=== PATIENT | male | born 1970 | race Caucasian/White ===

== ENCOUNTER 2018-03-18 07:42 | Day surgery (SDC) | payer SELFPAY ==
[~2018-03-18] VITALS: Ht 177.8 cm; Wt 83.9 kg
[~2018-03-18 07:42] MED LIST: DIPH25TA82 PO; IBP200T PO; LOSA100T28 PO
[2018-03-18] MEDS ORDERED: CLINDAMYCIN 600 MG/50 ML IVPB 50 ML IV ONE (08:00)
[2018-03-18 08:04] VITALS: BP 138/106
[2018-03-18] MEDS ORDERED: DEXAMETHASONE 10 MG/ML (DECADRON) 1 ML VIAL ONE (08:16)
[2018-03-18] MEDS ORDERED: proPOfol 200 MG/20 ML (DIPRIVAN) VIAL IV ONE (08:16)
[2018-03-18] MEDS ORDERED: LIDOCAINE PF 2% 5 ML (XYLOCAINE) VIAL ONE (08:16)
[2018-03-18] MEDS ORDERED: fentaNYL INJECTION 100 MCG/2 ML AMP ONE (08:16)
[2018-03-18] MEDS ORDERED: ONDANSETRON 4 MG/2 ML (SDV) Z0FRAN ONE (08:16)
[2018-03-18] MEDS ORDERED: SEVOFLURANE (ULTANE) 15 ML INHAL SOLN ONE ×3 (08:16→08:22)
[2018-03-18] MEDS ORDERED: MIDAZOLAM 2 MG/2 ML (VERSED) VIAL ONE (08:17)
[2018-03-18] MEDS: LACTATED RINGERS 1,000 ML IV PRN ×2 (08:18→09:34)
[2018-03-18] MEDS ORDERED: LIDOCAINE 1% INJ 20 ML 20 ML VIAL ONE (08:45)
[2018-03-18] MEDS ORDERED: BUPIVACAINE 0.5% 30 ML (SENSORCAINE) VIAL ONE (08:45)
--- NOTE | 2018-03-18 08:50 | Progress Note-Pre Operative ---
Pre-Operative Progress Note H&P Reviewed The H&P was reviewed, patient examined and no changes noted. Date Seen by Provider: Mar 18, 2018 Time Seen by Provider: 08: Date H&P Reviewed: Mar 18, 2018 Time H&P Reviewed: :30 Pre-Operative Diagnosis: left inguinal hernia MARSHAL ROLON DO Mar 18, 2018 08:50
[2018-03-18] MEDS ORDERED: ACHD5005 PO (09:39)
[2018-03-18] MEDS ORDERED: DOCU-143 PO (09:39)
--- NOTE | 2018-03-18 09:41 | Discharge Inst-Simple/Standard ---
Discharge Inst-Standard Discharge Medications New, Converted or Re-Newed RX: RX on Chart Patient Instructions/Follow Up Plan of Care/Instructions/FU: 2-3 weeks Lulu Activity as Tolerated: No Discharge Diet: Regular Diet Other Inst to Patient Follow up Appt: Make appointment for 2-3 week. Instructions: No lifting greater than 10 pounds. No strenuous activity. May shower in 24 hours, no tub bath or soaking. Use incentive spirometer at home as directed. No Smoking Skin/Wound Care: You have special glue over incision it will fall off on its own. Symptoms to Report: Appetite Changes, Extremity Discoloration, Numbness/Tingling, Swelling Increased , Bleeding Excessive, Eyesight Changes, Pain Increased, Urine Color Change, Constipation(Persistent), Fever over 101 degree F, Pain/Pressure in chest, Urinating Difficulty, Cough Up/Vomit Blood, Heart Beat Irreg/Pounding, Pain/ Pressure in jaw, Vaginal Bleeding Increase, Cramps in feet or legs, Lightheadedness, Pain/Pressure in shoulder, Diarrhea(Persistent), Memory Changes Suddenly, Questions/Concerns, Weight gain consecutive days, Dizziness/ Fainting, Nausea/Vomiting, Shortness of Breath, Weight gain over 2 pounds If questions or concerns contact your physician Or seek help at emergency department. MARSHAL ROLON DO Mar 18, 2018 09:41
--- NOTE | 2018-03-18 09:43 | Progress Note-Post Operative ---
Post-Operative Progess Note Surgeon (s)/Garbage Collector (s) Surgeon MARSHAL ROLON DO Garbage Collector: Dr. Cotton Pre-Operative Diagnosis left inguinal hernia Post-Operative Diagnosis direct left inguinal hernia Procedure & Operative Findings Date of Procedure 03/18/18 Procedure Performed/Findings open left inguinal hernia repair. Anesthesia Type general Estimated Blood Loss Estimated blood loss (mL): minimal Specimens/Packing Specimens Removed na MARSHAL ROLON DO Mar 18, 2018 09:43
[2018-03-18] MEDS ORDERED: morphine INJ 10 MG/ML 1ML (SYR OR VIAL) ONE (10:13)
[2018-03-18] MEDS ORDERED: ONDANSETRON 4 MG/2 ML (SDV) Z0FRAN IVP PRN (10:15)
[2018-03-18] MEDS ORDERED: HYDROmorphone 2 MG/ML VIAL (DILAUDID) IVP PRN (10:15)
[2018-03-18] MEDS: morphine INJ 10 MG/ML 1ML (SYR OR VIAL) IVP PRN ×2 (10:17→10:25)
--- NOTE | 2018-03-18 10:36 | Anesthesia-General Post-Op ---
General Patient Condition Mental Status/LOC: Same as Preop Cardiovascular: Satisfactory Nausea/Vomiting: Absent Respiratory: Satisfactory Pain: Controlled Complications: Absent Post Op Complications Complications None Follow Up Care/Instructions Patient Instructions None needed. Anesthesia/Patient Condition Patient Condition Patient is doing well, no complaints, stable vital signs, no apparent adverse anesthesia problems. LIOR ALMANZA DO Mar 18, 2018 10:36
[2018-03-18 10:55] VITALS: BP 139/101
[2018-03-18 11:25] VITALS: BP 130/101
[2018-03-18 11:55] VITALS: BP 144/103
[2018-03-18 12:00] VITALS: BP 144/103
--- NOTE | 2018-03-19 01:08 | OPERATIVE REPORT ---
DATE OF SERVICE: 03/18/2018 PREOPERATIVE DIAGNOSIS: Left inguinal hernia. POSTOPERATIVE DIAGNOSIS: Direct left inguinal hernia repair. PROCEDURE: Open left inguinal hernia repair. SURGEON: Marshal Lawson DO. CUSTOMER CONTACT SALES ASSOCIATE: Dr. Cotton, assisted in retraction, dissection and closure. ANESTHESIA: General. ESTIMATED BLOOD LOSS: Minimal. COMPLICATIONS: None. INDICATIONS: The patient is a 47-year-old male with left inguinal hernia with increase in size. He wishes to have it repaired. He understands risks and benefits and wishes to proceed. Consent was signed on chart. DESCRIPTION OF PROCEDURE: The patient was taken to the operating suite, was prepped and draped in sterile fashion. Surgical pause was performed. Local anesthetic was infiltrated in the area. An incision was made in the left lower quadrant and cautery was used to dissect down to the external oblique which was then opened down through the external ring. The spermatic cord was then dissected around. No indirect hernia noted. A large direct defect present. Transversalis fascia was then used to close the defect to the shelving edge of the external oblique after the hernia contents were reduced. A left Parietex ProGrip mesh was then secured to Anibal's ligament and then incorporated around the spermatic cord and placed on the external oblique. The wound was then irrigated with copious amounts of irrigation and suction. The external oblique was then closed using 3-0 Vicryl in a running fashion, recreating the external ring. The subcutaneous tissues were then reapproximated using 3-0 Vicryl. Skin was then closed using 4-0 Vicryl in a running subcuticular fashion. The area was then washed and dried and Skin Affix was placed over the incision. The patient tolerated the procedure well without any complications and taken to recovery room in stable condition. Job ID: [id number] DocumentID: [id number] Dictated Date: 03/18/2018 12:29:10 Bushing And Broach Operator Date: 03/18/2018 23:01:29 Dictated By: MARSHAL LAWSON DO
== END 2018-03-18 12:00 | disposition home or self-care (01) ==
LOC: SDC 07:42
PROVIDERS: ATTEND Surgery
DX: K40.90 Unilateral inguinal hernia, without obstruction or gangrene, not specified as recurrent (principal); I10 Essential (primary) hypertension; Z79.899 Other long term (current) drug therapy; Z87.891 Personal history of nicotine dependence
CPT/HCPCS: 87081; 94664

== ENCOUNTER 2019-04-05 12:36 | Emergency (ER) | payer SELFPAY ==
[~2019-04-05] VITALS: Ht 175.3 cm; Wt 75.3 kg
[~2019-04-05 12:36] MED LIST changes: +ACHD5005 PO; +DOCU-143 PO; -LOSA100T28 PO; +LOSA100T57 PO
[2019-04-05] MEDS ORDERED: LORazepam INJ 2 MG/ML (ATIVAN) VIAL ONE (12:40)
--- OUTSIDE RECORDS SUMMARY | 2019-04-05 12:41 | XMS REPORT | Continuity of Care Document ---
Author Organization Unknown Address Unknown Allergies Active Description Code Type Severity Reaction Onset Reported/Identified Relationship to Patient Clinical Status Yes Penicillins [id number] Drug Allergy Moderate N/A 03/12/2018 Medications There is no data. Problems Date Dx Coded Attending Type Code Diagnosis Diagnosed By 08/17/2013 PA COREA APRN Ot 300.00 08/17/2013 PA COREA APRN Ot 782.0 11/13/2015 SANTO HAIRSTON, ELIOT Beal Ot F45.8 11/13/2015 SANTO HAIRSTON, ELIOT Beal Ot Z72.0 03/16/2018 MARSHAL ROLON DO Ot K40.90 UNIL INGUINAL HERNIA, W/O OBST OR GANGR, 03/16/2018 MARSHAL ROLON DO Ot Z01.818 ENCOUNTER FOR OTHER PREPROCEDURAL EXAMIN 03/18/2018 MARSHAL ROLON DO Ot K40.90 UNIL INGUINAL HERNIA, W/O OBST OR GANGR, 03/18/2018 MARSHAL ROLON DO Ot Z01.818 ENCOUNTER FOR OTHER PREPROCEDURAL EXAMIN 03/19/2018 MARSHAL ROLON DO Ot I10 ESSENTIAL (PRIMARY) HYPERTENSION 03/19/2018 MARSHAL ROLON DO Ot K40.90 UNIL INGUINAL HERNIA, W/O OBST OR GANGR, 03/19/2018 MARSHAL ROLON DO Ot Z79.899 OTHER PETROLEUM SAMPLER (CURRENT) DRUG THERAPY 03/19/2018 MARSHAL ROLON DO Ot Z87.891 PERSONAL HISTORY OF NICOTINE DEPENDENCE Procedures There is no data. Results Test Result Range Methicillin resistant Staphylococcus aureus (MRSA) screening culture - 08:20 Methicillin resistant Staphylococcus aureus (MRSA) screening culture NEG NRG Encounters ACCT No. Visit Date/Time Discharge Status Pt. Type Provider Facility Loc./Unit Complaint [id number] 03/18/2018 07:42:00 03/18/2018 12:00:00 DIS Outpatient MARSHAL ROLON DO [facility] SDC LEFT INGUINAL HERNIA [id number] 03/12/2018 05:31:00 03/12/2018 10:40:00 DIS Outpatient MARSHAL ROLON DO [facility] PREOP LEFT INGUINAL HERNIA [id number] 11/13/2015 18:46:00 11/13/2015 19:35:00 DIS Emergency ELIOT BLANCHARD MD [facility] ER [id number] 08/17/2013 17:43:00 08/17/2013 19:22:00 DIS Emergency PA COREA APRN [facility] ER
[2019-04-05] MEDS ORDERED: LORazepam INJ 2 MG/ML (ATIVAN) VIAL IVP PRN ×2 (12:45→13:00)
--- NOTE | 2019-04-05 12:45 | ED General ---
General Stated Complaint: SOA;MUSCLES TENSE;CP Source of Information: Patient Exam Limitations: No Limitations History of Present Illness Date Seen by Provider: April 05, 2019 Time Seen by Provider: 12:43 Initial Comments To ER by and mother with reports of shortness of breath, tense muscles, chest pain for about 2 weeks worse today. He does feel very anxious. He's had this happen once before was told it was anxiety. He's had a workup for this over the past few weeks with Dr. Soriano with normal labs and x-rays. Timing/Duration: Getting Worse, Intermittent Severity: Moderate Allergies and Home Medications Allergies Coded Allergies: Penicillins (Unverified Adverse Reaction, Intermediate, 03/12/18) Home Medications Losartan Potassium 100 Mg Tablet, 100 MG PO DAILY, (Reported) Patient Home Medication List Home Medication List Reviewed: Yes Review of Systems Review of Systems Constitutional: see HPI EENTM: see HPI Respiratory: see HPI, dyspnea on exertion Cardiovascular: no symptoms reported Genitourinary: no symptoms reported Musculoskeletal: no symptoms reported Skin: no symptoms reported Psychiatric/Neurological: No Symptoms Reported Hematologic/Lymphatic: No Symptoms Reported Immunological/Allergic: no symptoms reported Past Enxtluf-Gmvdoo-Fkxouv Hx Patient Social History Recent Foreign Travel: No Contact w/Someone Who Travel: No Recent Hopitalizations: No Seasonal Allergies Seasonal Allergies: Yes (MILD) Past Medical History Adenoidectomy, Tonsillectomy Hypertension Reproductive Disorders: No Sexually Transmitted Disease: No HIV/AIDS: No Loss of Vision: Bilateral Hearing Impairment: Denies Adverse Reaction/Blood Tranf: No (N/A) Family Medical History No Pertinent Family Hx Physical Exam Vital Signs Vital Signs - First Documented 04/05/19 12:36 Temp 98.1 Pulse 82 Resp 18 B/P (MAP) 125/111 (116) Pulse Ox 99 Capillary Refill : Height, Weight, BMI Height: 5'10.00" Weight: 185lbs. 0.0oz. 83.926844vf; 26.5 BMI Method:Stated General Appearance: No Apparent Distress, WD/WN Eyes: Bilateral Eye Normal Inspection, Bilateral Eye PERRL, Bilateral Eye EOMI HEENT: PERRL/EOMI, TMs Normal Neck: Full Range of Motion, Normal Inspection Respiratory: Normal Breath Sounds, No Accessory Muscle Use, No Respiratory Distress Cardiovascular: Regular Rate, Rhythm, Normal Peripheral Pulses Gastrointestinal: Normal Bowel Sounds, Non Tender, Soft Neurologic/Psychiatric: Alert, Oriented x3, Other (very anxious appearing, hyperventilating, carpal spasms noted) Skin: Normal Color, Warm/Dry Progress/Results/Core Measures Suspected Sepsis SIRS Temperature: Pulse: Respiratory Rate: Laboratory Tests 04/05/19 12:42: White Blood Count 9.4 Blood Pressure / Mean: Laboratory Tests 04/05/19 12:42: Creatinine 0.95, INR Comment 0.9, Platelet Count 300, Total Bilirubin 0.4 Results/Orders Lab Results Laboratory Tests Test 04/05/19 12:42 Range/Units White Blood Count 9.4 4.3-11.0 10^3/uL Red Blood Count 4.91 4.35-5.85 10^6/uL Hemoglobin 15.3 13.3-17.7 G/DL Hematocrit 42 40-54 % Mean Corpuscular Volume 86 80-99 FL Mean Corpuscular Hemoglobin 31 25-34 PG Mean Corpuscular Hemoglobin Concent 36 32-36 G/DL Red Cell Distribution Width 11.9 10.0-14.5 % Platelet Count 300 130-400 10^3/uL Mean Platelet Volume 9.4 7.4-10.4 FL Neutrophils (%) (Auto) 57 42-75 % Lymphocytes (%) (Auto) 35 12-44 % Monocytes (%) (Auto) 7 0-12 % Eosinophils (%) (Auto) 1 0-10 % Basophils (%) (Auto) 0 0-10 % Neutrophils # (Auto) 5.3 1.8-7.8 X 10^3 Lymphocytes # (Auto) 3.3 1.0-4.0 X 10^3 Monocytes # (Auto) 0.7 0.0-1.0 X 10^3 Eosinophils # (Auto) 0.1 0.0-0.3 10^3/uL Basophils # (Auto) 0.0 0.0-0.1 10^3/uL Prothrombin Time 12.5 12.2-14.7 SEC INR Comment 0.9 0.8-1.4 Activated Partial Thromboplast Time 29 24-35 SEC D-Dimer <= 0.27 0.00-0.49 UG/ML Sodium Level 135 135-145 MMOL/L Potassium Level 3.6 3.6-5.0 MMOL/L Chloride Level 105 98-107 MMOL/L Carbon Dioxide Level 19 L 21-32 MMOL/L Anion Gap 11 5-14 MMOL/L Blood Urea Nitrogen 12 7-18 MG/DL Creatinine 0.95 0.60-1.30 MG/DL Estimat Glomerular Filtration Rate > 60 BUN/Creatinine Ratio 13 Glucose Level 105 70-105 MG/DL Calcium Level 10.1 8.5-10.1 MG/DL Corrected Calcium 8.5-10.1 MG/DL Magnesium Level 1.9 1.8-2.4 MG/DL Total Bilirubin 0.4 0.1-1.0 MG/DL Aspartate Amino Transf (AST/SGOT) 14 5-34 U/L Alanine Aminotransferase (ALT/SGPT) 13 0-55 U/L Alkaline Phosphatase 54 40-136 U/L Myoglobin 30.6 10.0-92.0 NG/ML Troponin I < 0.028 <0.028 NG/ML B-Type Natriuretic Peptide 18.2 <100.0 PG/ML Total Protein 7.4 6.4-8.2 GM/DL Albumin 4.8 H 3.2-4.5 GM/DL Lipase 53 8-78 U/L My Orders Orders - PA COREA ASE MASTER MECHANIC Cbc With Automated Diff (04/05/19 12:42) Magnesium (04/05/19 12:42) Chest 1 View, Ap/Pa Only (04/05/19 12:42) Ekg Tracing (04/05/19 12:42) Cardiac Profile 1 (04/05/19 12:42) Comprehensive Metabolic Panel (04/05/19 12:42) Myoglobin Serum (04/05/19 12:42) Protime With Inr (04/05/19 12:42) Partial Thromboplastin Time (04/05/19 12:42) O2 (04/05/19 12:42) Monitor-Rhythm Ecg Trace Only (04/05/19 12:42) Lipid Panel (04/06/19 06:00) Ed Iv/Invasive Line Start (04/05/19 12:42) Lipase (04/05/19 12:42) BNP (04/05/19 12:42) Fibrin Degradation Products (04/05/19 12:42) Lorazepam Injection (Ativan Injection) (04/05/19 12:45) Ua Culture If Indicated (04/05/19 12:45) Drug Screen Stat (Urine) (04/05/19 12:45) Lorazepam Injection (Ativan Injection) (04/05/19 13:00) Medications Given in ED Current Medications Medications Dose Ordered Sig/Wilberto Route Start Time Stop Time Status Last Admin Dose Admin Lorazepam 1 mg ONCE PRN IVP 04/05/19 12:45 04/05/19 12:45 1 MG Vital Signs/I&O 04/05/19 12:36 Temp 98.1 Pulse 82 Resp 18 B/P (MAP) 125/111 (116) Pulse Ox 99 Capillary Refill : Departure Communication (Admissions) 1351-after 2 mg of lorazepam states that "I feel better than I have all day". He is already on Lexapro 10 mg daily. I'll increase this to 20 mg daily and when necessary prescription of lorazepam. I did discuss with him the addictive potential of that and the need to avoid it as much as possible. He'll follow-up with primary care. Impression Primary Impression: Anxiety Additional Impression: Hyperventilation syndrome Disposition: 01 HOME, SELF-CARE Condition: Improved Departure-Patient Inst. Decision time for Depature: 13:52 Referrals: KIKI SORIANO MD (PCP/Family) Primary Care Physician Patient Instructions: Panic Disorder (DC) Add. Discharge Instructions: 1. Return to ER for any concerns 2. Follow-up with your doctor next week Scripts Escitalopram Oxalate (Lexapro) 20 Mg Tablet 20 MG PO DAILY, #30 TAB 2 Refills Prov: PA COREA APRN 04/05/19 Lorazepam (Lorazepam) 1 Mg Tablet 1 MG PO BID PRN for ANXIETY, #14 TAB Prov: PA COREA APRN 04/05/19 Work/School Note: Work Release Form Date Seen in the Emergency Department: April 06, 2019 Return to Work: April 05, 2019 PA COREA APRN April 05, 2019 12:45
[2019-04-05 13:06] LABS: BASOPHILS % (AUTO) 0 % (0-10); EOSINOPHILS # (AUTO) 0.1 10^3/uL (0.0-0.3); EOSINOPHILS % (AUTO) 1 % (0-10); HEMATOCRIT 42 % (40-54); HEMOGLOBIN 15.3 G/DL (13.3-17.7); LYMPHOCYTES # (AUTO) 3.3 X 10^3 (1.0-4.0); LYMPHOCYTES % (AUTO) 35 % (12-44); MEAN CORPUSCULAR HEMOGLOBIN 31 PG (25-34); MEAN CORPUSCULAR HGB CONC 36 G/DL (32-36); MEAN CORPUSCULAR VOLUME 86 FL (80-99); MEAN PLATELET VOLUME 9.4 FL (7.4-10.4); MONOCYTES # (AUTO) 0.7 X 10^3 (0.0-1.0); MONOCYTES % (AUTO) 7 % (0-12); NEUTROPHILS # (AUTO) 5.3 X 10^3 (1.8-7.8); NEUTROPHILS % (AUTO) 57 % (42-75); PLATELET COUNT 300 10^3/uL (130-400); RED CELL DISTRIBUTION WIDTH 11.9 % (10.0-14.5); WHITE BLOOD COUNT 9.4 10^3/uL (4.3-11.0)
[2019-04-05] MEDS ORDERED: OMEP20CA12 (13:10)
[2019-04-05] MEDS ORDERED: DOXY100C2 (13:10)
[2019-04-05 13:14] LABS: INR 0.9 (0.8-1.4); PROTHROMBIN TIME PATIENT 12.5 SEC (12.2-14.7)
[2019-04-05 13:23] LABS: ALANINE AMINOTRANSFERASE 13 U/L (0-55); ALBUMIN 4.8 GM/DL (3.2-4.5); ALKALINE PHOSPHATASE 54 U/L (40-136); BILIRUBIN,TOTAL 0.4 MG/DL (0.1-1.0); BUN/CREATININE RATIO 13; CALCIUM 10.1 MG/DL (8.5-10.1); CARBON DIOXIDE 19 MMOL/L (21-32); CHLORIDE 105 MMOL/L (98-107); CREATININE SERUM 0.95 MG/DL (0.60-1.30); GFR ESTIMATED > 60; GLUCOSE 105 MG/DL (70-105); LIPASE 53 U/L (8-78); MAGNESIUM 1.9 MG/DL (1.8-2.4); POTASSIUM 3.6 MMOL/L (3.6-5.0); SODIUM 135 MMOL/L (135-145); TOTAL PROTEIN 7.4 GM/DL (6.4-8.2)
--- NOTE | 2019-04-05 13:32 | Diagnostic Imaging Report ---
INDICATION: Shortness of breath, muscle dense.. TECHNIQUE: Single view chest 1:20 PM. CORRELATION STUDY: None FINDINGS: The heart size, mediastinal configuration and pulmonary vascularity are within normal limits. Calcified right perihilar granulomas. The lungs are clear with no consolidating infiltrate. There is no significant effusion or pneumothorax. IMPRESSION: 1. No radiographic findings to suggest acute abnormality of the chest. Dictated by: Dictated on workstation # [id number]
[2019-04-05] MEDS ORDERED: LORA1TAB PO (13:53)
[2019-04-05] MEDS ORDERED: ESCI20TA PO (13:53)
[2019-04-05 14:03] VITALS: BP 107/72
== END 2019-04-05 14:03 | disposition home or self-care (01) ==
LOC: EDUNIT# 12:36 → ER 12:37
DX: F41.9 Anxiety disorder, unspecified (principal); R06.4 Hyperventilation; I10 Essential (primary) hypertension; Z88.0 Allergy status to penicillin; Z90.89 Acquired absence of other organs
CPT/HCPCS: 36415; 71045; 80053; 83690; 83735; 83874; 83880; 84484; 85025; 85379; 85610; 85730; 93005; 93041; 96374

== ENCOUNTER → 2019-06-30 | Outpatient (CLI) | payer SELFPAY ==
[~2019-06-30] MED LIST changes: +DOXY100C2; +ESCI20TA PO; +HOLD METFORMIN - RECEIVED CONTRAST 20 ML VIAL IV SCH; +IOHEXOL 350 MG/ML 100 ML (OMNIPAQUE 350) VIAL IV ONE; +LORA1TAB PO; +NS 100 ML (IVPB) BAG IV ONE; +OMEP20CA13
--- NOTE | 2019-06-30 13:15 | Diagnostic Imaging Report ---
PROCEDURE: CT chest with contrast only. TECHNIQUE: Multiple contiguous axial images were obtained through the chest after administration of intravenous contrast. Auto Exposure Controls were utilized during the CT exam to meet ALARA standards for radiation dose reduction. INDICATION: Cough and weight loss as well as mid chest pain. COMPARISON: No prior studies are available for comparison. FINDINGS: No axillary lymphadenopathy is seen. There is a mass in the mediastinum and left hilum. AP window mass measures approximately 4.2 x 2.8 cm. There is a subcarinal mass which contains calcifications. Left hilar mass is present measuring 3.5 x 2.5 cm. The mass significantly narrows the left lower lobe bronchus, particularly the bronchus in the superior segment. There is a small amount of postobstructive pneumonitis present. Multiple calcified lymph nodes in the right hilum are seen as well. The remainder of the lung cruz are clear. There is no pericardial or pleural fluid identified. Upper abdomen shows small low densities in the liver, too small to characterize but most likely cysts. No adrenal mass is detected. IMPRESSION: Mediastinal and left hilar mass, suspicious for neoplasm. Bronchoscopy is recommended. There are some calcified lymph nodes in the subcarinal and right hilar region, perhaps owing to prior granulomatous exposure. Dictated by: Dictated on workstation # [id number]
== END ==
LOC: RAD 12:30
PROVIDERS: ATTEND Nurse Practitioner Community Health
DX: R91.8 Other nonspecific abnormal finding of lung field (principal); R07.89 Other chest pain; R63.4 Abnormal weight loss; R05 Cough
CPT/HCPCS: 71260

== ENCOUNTER → 2019-07-11 | Outpatient (CLI) | payer SELFPAY ==
[~2019-07-11] MED LIST changes: -HOLD METFORMIN - RECEIVED CONTRAST 20 ML VIAL IV SCH; +HYDR-700 PO; -IOHEXOL 350 MG/ML 100 ML (OMNIPAQUE 350) VIAL IV ONE; -NS 100 ML (IVPB) BAG IV ONE; +PROP40TA5 PO
[2019-07-11 10:26] LABS: BASOPHILS % (AUTO) 0 % (0-10); EOSINOPHILS # (AUTO) 0.1 10^3/uL (0.0-0.3); EOSINOPHILS % (AUTO) 1 % (0-10); HEMATOCRIT 42 % (40-54); HEMOGLOBIN 15.2 G/DL (13.3-17.7); LYMPHOCYTES # (AUTO) 1.5 X 10^3 (1.0-4.0); LYMPHOCYTES % (AUTO) 19 % (12-44); MEAN CORPUSCULAR HEMOGLOBIN 31 PG (25-34); MEAN CORPUSCULAR HGB CONC 36 G/DL (32-36); MEAN CORPUSCULAR VOLUME 87 FL (80-99); MEAN PLATELET VOLUME 8.6 FL (7.4-10.4); MONOCYTES # (AUTO) 0.8 X 10^3 (0.0-1.0); MONOCYTES % (AUTO) 10 % (0-12); NEUTROPHILS # (AUTO) 5.5 X 10^3 (1.8-7.8); NEUTROPHILS % (AUTO) 69 % (42-75); PLATELET COUNT 311 10^3/uL (130-400); RED CELL DISTRIBUTION WIDTH 12.3 % (10.0-14.5); WHITE BLOOD COUNT 7.9 10^3/uL (4.3-11.0)
[2019-07-11 10:37] LABS: INR 0.9 (0.8-1.4)
[2019-07-11 10:49] LABS: ALANINE AMINOTRANSFERASE 7 U/L (0-55); ALBUMIN 4.4 GM/DL (3.2-4.5); ALKALINE PHOSPHATASE 63 U/L (40-136); BILIRUBIN,TOTAL 0.6 MG/DL (0.1-1.0); BUN/CREATININE RATIO 9; CALCIUM 9.7 MG/DL (8.5-10.1); CARBON DIOXIDE 27 MMOL/L (21-32); CHLORIDE 104 MMOL/L (98-107); CREATININE SERUM 0.85 MG/DL (0.60-1.30); GFR ESTIMATED > 60; GLUCOSE 102 MG/DL (70-105); POTASSIUM 4.3 MMOL/L (3.6-5.0); SODIUM 139 MMOL/L (135-145); TOTAL PROTEIN 7.1 GM/DL (6.4-8.2)
[2019-07-11 11:29] LABS: ABG BASE EXCESS 0.4 MMOL/L (-2.5-2.5); ABG OXYGEN SATURATION 95 % (94-100); ABG PCO2 40 MMHG (35-45); ABG PO2 71 MMHG (79-93)
[2019-07-11 11:32] LABS: ALLENS TEST YES-POS; INSPIRED O2 ROOM AIR
[2019-07-11 11:33] LABS: PATIENT TEMP 97.7; VENTILATOR NO
--- NOTE | 2019-07-11 12:40 | Diagnostic Imaging Report ---
CLINICAL INDICATION: Patient with dyspnea, allergic rhinitis and cough. Patient with abnormal findings of lung field. EXAM: Chest x-ray PA and lateral views. COMPARISON: CT scan of the chest performed with contrast dated 06/30/2019. Chest x-ray dated 04/05/2019. FINDINGS: Again noted slight masslike enlargement of the left perihilar region which correlates to areas concerning for mass on the comparison CT scan of the chest. There is slight increased curvilinear opacities in left lung base which may represent atelectasis. Stable calcified lymph nodes in the right perihilar and mediastinal region. Remainder of the lungs are clear. There is no pleural effusion or pneumothorax. Pulmonary vasculature and cardiac silhouette is otherwise unremarkable. There are small spurs involving the thoracic spine. The remainder of this exam shows no significant interval change compared to the prior study of comparison. IMPRESSION: 1: There is no significant change to the mild masslike enlargement of the left perihilar region. This area was concerning for mass noted on comparison chest CT scan. 2: There is interval development of mild left basilar atelectasis. Otherwise, there is no interval radiographic evidence of acute cardiopulmonary process. Dictated by: Dictated on workstation # [id number]
== END ==
LOC: LAB 10:08
PROVIDERS: ATTEND Nurse Practitioner Family
DX: J30.9 Allergic rhinitis, unspecified (principal); R91.8 Other nonspecific abnormal finding of lung field; R63.4 Abnormal weight loss
CPT/HCPCS: 36415; 36600; 71046; 80053; 82805; 85025; 85610; 85730

== ENCOUNTER 2019-07-12 06:41 | Outpatient (CLI) | payer SELFPAY ==
[~2019-07-12] VITALS: Ht 175.3 cm; Wt 68.0 kg
[~2019-07-12 06:41] MED LIST changes: -HYDR-700 PO; -PROP40TA5 PO
[2019-07-12] MEDS ORDERED: HYDR-700 PO (13:38)
[2019-07-12] MEDS ORDERED: PROP40TA5 PO (13:38)
== END 2019-07-12 13:40 | disposition home or self-care (01) ==
LOC: PREOP 06:41
PROVIDERS: ATTEND Internal Medicine Critical Care Medicine
DX: Z01.818 Encounter for other preprocedural examination (principal)

== ENCOUNTER 2019-07-13 06:48 | Day surgery (SDC) | payer SELFPAY ==
[2019-07-13] VITALS (9 sets, daily range): BP systolic 131–141; BP diastolic 83–100
[~2019-07-13] VITALS: Ht 175.3 cm; Wt 67.8 kg
[~2019-07-13 06:48] MED LIST changes: +HYDR-700 PO; +LACTATED RINGERS 1,000 ML IV ONE; +PROP40TA5 PO
[2019-07-13] MEDS ORDERED: LIDOCAINE PF 1% 2 ML VIAL IJ ONE (06:49)
[2019-07-13] MEDS ORDERED: LIDOCAINE JELLY 2% 6 ML SYRINGE TOP ONE (06:49)
[2019-07-13] MEDS ORDERED: LIDOCAINE PF 2% 5 ML (XYLOCAINE) VIAL INJ ONE (06:49)
[2019-07-13] MEDS ORDERED: LACTATED RINGERS 1,000 ML IV STA (06:54)
[2019-07-13] MEDS ORDERED: LIDOCAINE PF 2% 5 ML (XYLOCAINE) VIAL ONE (07:05)
[2019-07-13] MEDS ORDERED: proPOfol 200 MG/20 ML (DIPRIVAN) VIAL IV ONE (07:05)
[2019-07-13] MEDS ORDERED: SEVOFLURANE (ULTANE) 15 ML INHAL SOLN ONE (07:05)
[2019-07-13] MEDS ORDERED: GLYCOPYRROLATE 0.2 MG/ML (ROBINUL) 2 ML VIAL ONE (07:05)
[2019-07-13] MEDS ORDERED: fentaNYL INJECTION 100 MCG/2 ML AMP ONE (07:05)
[2019-07-13] MEDS ORDERED: MIDAZOLAM 2 MG/2 ML (VERSED) VIAL ONE (07:05)
[2019-07-13] MEDS ORDERED: ROCURONIUM 10 MG/ML 5 ML SYRINGE IV ONE ×2 (07:06→08:47)
[2019-07-13] MEDS ORDERED: ONDANSETRON 4 MG/2 ML (SDV) Z0FRAN ONE (07:06)
[2019-07-13] MEDS ORDERED: NEOSTIGMINE 3 MG/3 ML VIAL ONE (07:06)
[2019-07-13] MEDS ORDERED: LACTATED RINGERS 1,000 ML IV ONE ×2 (07:38→11:28)
--- NOTE | 2019-07-13 09:44 | Pulmonary Procedures ---
Pulmonary Procedures Date of Procedure Date of Service: Jul 13, 2019 Bronch Bronchoscopy with fluoroscopy right james brush x 2, left main stem bronchus brush, LLL bronchus brush, forcep bx of left main stem and LLL bronchus. Left lung wash, EBUS with bx of station 10L, and 11L lymph nodes under US guidance. Preop DX: LLL mass with mediastinal lymphadenopathy PostOP DX: Pt has and endobronchial nonobstructing mass of left main bronchus and LLL bronchus. Complications: None Pt was sedated per anesthesia. Bronchoscopy was advanced through the ET tube and an anatomical undertaken down to the segmental bronchi bilaterally. Pt has and endobronchial nonobstructing mass of left main bronchus and LLL bronchus. Bronchoscopy with fluoroscopy right james brush x 2, left main stem bronchus brush, LLL bronchus brush, forcep bx of left main stem and LLL bronchus. Left lung wash, EBUS with bx of station 10L, and 11L lymph nodes under US guidance. Pt tolerated procedure well. No complications noted. BRIE GARRETT DO Jul 13, 2019 09:44
[2019-07-13] MEDS ORDERED: SUGAMMADEX 500 MG/5 ML VIAL (BRIDION) IV ONE (09:45)
[2019-07-13] MEDS: LACTATED RINGERS 1,000 ML IV SCH ×2 (11:57→23:44)
[2019-07-13 12:01] LABS: BASOPHILS % (AUTO) 0 % (0-10); EOSINOPHILS % (AUTO) 0 % (0-10); HEMATOCRIT 40 % (40-54); HEMOGLOBIN 14.4 G/DL (13.3-17.7); LYMPHOCYTES # (AUTO) 1.3 X 10^3 (1.0-4.0); LYMPHOCYTES % (AUTO) 13 % (12-44); MEAN CORPUSCULAR HEMOGLOBIN 31 PG (25-34); MEAN CORPUSCULAR HGB CONC 36 G/DL (32-36); MEAN CORPUSCULAR VOLUME 88 FL (80-99); MEAN PLATELET VOLUME 8.7 FL (7.4-10.4); MONOCYTES # (AUTO) 0.8 X 10^3 (0.0-1.0); MONOCYTES % (AUTO) 8 % (0-12); NEUTROPHILS # (AUTO) 7.6 X 10^3 (1.8-7.8); NEUTROPHILS % (AUTO) 78 % (42-75); PLATELET COUNT 240 10^3/uL (130-400); RED CELL DISTRIBUTION WIDTH 12.3 % (10.0-14.5); WHITE BLOOD COUNT 9.7 10^3/uL (4.3-11.0)
[2019-07-13 12:25] LABS: ALANINE AMINOTRANSFERASE 9 U/L (0-55); ALBUMIN 3.9 GM/DL (3.2-4.5); ALKALINE PHOSPHATASE 55 U/L (40-136); BILIRUBIN,TOTAL 0.6 MG/DL (0.1-1.0); BUN/CREATININE RATIO 9; CALCIUM 9.2 MG/DL (8.5-10.1); CARBON DIOXIDE 27 MMOL/L (21-32); CHLORIDE 105 MMOL/L (98-107); GFR ESTIMATED > 60; GLUCOSE 106 MG/DL (70-105); MAGNESIUM 1.5 MG/DL (1.6-2.4); PHOSPHORUS 3.7 MG/DL (2.3-4.7); POTASSIUM 3.8 MMOL/L (3.6-5.0); SODIUM 140 MMOL/L (135-145); TOTAL PROTEIN 6.4 GM/DL (6.4-8.2)
--- NOTE | 2019-07-13 12:41 | Diagnostic Imaging Report ---
INDICATION: Post bronchoscopy. COMPARISON: 07/11/2019. FINDINGS: Irregular fullness in the left pulmonary lila is redemonstrated. Calcified granulomatous nodes in the subcarinal mediastinum and right pulmonary lila are stable. New airspace disease in the left lower lobe. A small left effusion is suspected. No pneumothorax. IMPRESSION: 1. Left lower lobe airspace disease and small left effusion with no pneumothorax. 2. Calcified pau residua with abnormal fullness in the left pulmonary lila, unchanged. Dictated by: Dictated on workstation # [id number]
[2019-07-13] MEDS: RT-ALBUTEROL/IPRATROPIUM 3 ML (DUONEB) VIAL INH SCH ×3 (13:44→22:44)
[2019-07-13] MEDS: MAGNESIUM 1 GM/100 ML IVPB 100 ML IV SCH (15:29)
[2019-07-13] MEDS: morphine INJ 4 MG/ML 1 ML (VIAL/SYRINGE) IVP PRN ×3 (15:53→22:37)
[2019-07-13] MEDS ORDERED: PATIENT MAY USE OWN MED,SINGLE MED PO SCH ×2 (16:30→17:00)
--- NOTE | 2019-07-13 18:33 | NUR ---
THIS RN CALLED REPORT TO ASAEL TRENT AT 1817. PT TO TRANSFER TO ROOM 407. PT TRANSFERRED WITH ALL PERSONAL BELONGINGS.
--- NOTE | 2019-07-13 18:35 | NUR ---
PT ARRIVED TO ROOM. THIS RN TO RESUME CARE. THIS RN AGREES WITH PREVIOUS NURSES ASSESSMENT.
[2019-07-13] MEDS ORDERED: PROPRANOLOL 40 MG TABLET PO SCH (22:30)
[2019-07-14] VITALS: BP 132/87
[2019-07-14] MEDS: morphine INJ 4 MG/ML 1 ML (VIAL/SYRINGE) IVP PRN (02:51)
[2019-07-14] MEDS: RT-ALBUTEROL/IPRATROPIUM 3 ML (DUONEB) VIAL INH SCH ×2 (02:51→08:16)
[2019-07-14 04:00] VITALS: BP 136/89
--- NOTE | 2019-07-14 06:51 | Pulmonary History & Physicial ---
History of Present Illness History of Present Illness Date of Consultation 07/13/19 (late note today is 07/14) 0900 Time Seen by Provider: 09:00 Date of Admission History of Present Illness Pt with recent dx of lung mass with MLA presented for elective bronchoscopy with EBUS. Procedure was uncomplicated however pt had difficulty weaning off vent initially. Anesthesia was able to extubate after a period of time. Secondary to patients weakness and to ensure stability will keep pt overnight and monitor. Will plan to discharge 07/14 if pt is doing well. No prior episodes like this. Allergies and Home Medications Allergies Coded Allergies: Penicillins (Verified Adverse Reaction, Intermediate, 07/13/19) Home Medications Hydroxyzine HCl 25 Mg Tablet, 25 MG PO Q8H PRN for ANXIETY, (Reported) Propranolol HCl 40 Mg Tablet, 40 MG PO BID, (Reported) Patient Home Medication List Home Medication List Reviewed: Yes Past Pwmvjal-Iwbelu-Txynpu Hx Patient Social History Alcohol Use: Denies Use Recreational Drug Use: No Smoking Status: Never a Smoker Recent Foreign Travel: No Contact w/Someone Who Travel: No Recent Infectious Disease Expo: No Recent Hopitalizations: No Seasonal Allergies Seasonal Allergies: Yes (MILD) Past Medical History Surgeries: Yes (HERNIA) Adenoidectomy, Tonsillectomy Respiratory: Yes (dyspnea/cough) Cardiac: Yes Hypertension Neurological: No Reproductive Disorders: No Sexually Transmitted Disease: No HIV/AIDS: No Genitourinary: No Gastrointestinal: Yes (INGUINAL HERNIA) Musculoskeletal: No Endocrine: No HEENT: No Loss of Vision: Bilateral Hearing Impairment: Denies Cancer: No Psychosocial: No Integumentary: No Blood Disorders: No Adverse Reaction/Blood Tranf: No (N/A) Family Medical History Patient reports no known family medical history. No Pertinent Family Hx Review of Systems Time Seen by Provider: 06:48 Constitutional: Weakness, Malaise; No: Fever, Chills, Sweats, Other Eyes: No: Pain, Vision change, Conjunctivae inflammation, Eyelid inflammation, Other, Redness ENT: No: Ear pain, Ear discharge, Nose pain, Nose discharge, Nose congestion, Mouth pain, Mouth swelling, Throat pain, Throat swelling, Other Respiratory: Cough, Dry, Shortness of breath, SOB with excertion, Wheezing; No: Hemoptysis, Pleuritic Pain, Sputum, Wheezing, Other Cardiovascular: Palpitations, Paroxysmal Noc. Dyspnea, Lt Headedness; No: Chest Pain, Orthopnea, Edema, Other Gastrointestinal: Nausea; No: Vomiting, Abdominal Pain, Diarrhea, Constipation, Melena, Hematochezia, Other Neurological: Weakness Exam Exam Vital Signs Date Time Temp Pulse Resp B/P (MAP) Pulse Ox O2 Delivery O2 Flow Rate FiO2 07/14/19 04:00 98.2 87 20 136/89 (105) 94 Room Air 07/14/19 02:50 94 07/14/19 00:00 99.5 85 18 132/87 (102) 97 Room Air 07/13/19 22:44 95 07/13/19 21:00 100 Simple Mask 5.00 07/13/19 20:00 99.7 83 18 133/86 (102) 95 Room Air 07/13/19 19:08 97 07/13/19 18:40 100.0 85 14 132/83 (99) 95 Room Air 07/13/19 18:14 93 12 141/90 (107) 97 Room Air 07/13/19 17:15 83 26 141/90 (107) 98 Room Air 07/13/19 16:00 93 12 141/90 (107) 97 Room Air 07/13/19 13:44 100 Room Air 07/13/19 13:00 87 07/13/19 12:00 86 21 137/100 (112) 99 Room Air 07/13/19 11:55 Room Air 07/13/19 11:42 18 07/13/19 11:00 85 24 131/96 (108) 100 Simple Mask 5.00 07/13/19 11:00 98.4 07/13/19 10:45 81 07/13/19 10:45 80 14 131/93 (106) 100 Simple Mask 5.00 07/13/19 10:45 100 Simple Mask 5.00 07/13/19 07:05 95 Room Air 07/13/19 06:55 97.8 91 18 138/98 (111) 96 I & O 07/14/19 07:00 Intake Total 3690 ml Output Total 1500 ml Balance 2190 ml Height & Weight Height: 5'9.00" Weight: 149lbs. 6.0oz. 67.187958ds; 22.1 BMI Method:Stated General Appearance: No Apparent Distress, WD/WN HEENT: PERRL/EOMI, Normal ENT Inspection, Pharynx Normal Neck: Full Range of Motion, Non Tender, Supple Respiratory: Chest Non Tender, No Accessory Muscle Use, No Respiratory D istress, Decreased Breath Sounds Cardiovascular: Regular Rate, Rhythm Capillary Refill: Less Than 3 Seconds Gastrointestinal: normal bowel sounds, non tender, soft, no organomegaly Extremity: Normal Capillary Refill, No Pedal Edema Neurologic/Psychiatric: Alert, Oriented x3 Skin: Normal Color, Warm/Dry Lymphatic: No Adenopathy Results Lab Laboratory Tests 07/13/19 11:50 Assessment/Plan Assessment/Plan Admission Dx Lung mass with MLA s/p bronchoscopy with EBUS -Difficult extubation post procedure -Discharge in AM 07/14 if still doing well Admission Status: Observation a BRIE GARRETT DO Jul 14, 2019 06:51
--- NOTE | 2019-07-14 06:54 | Pulmonary Progress Note ---
Subjective Time Seen by a Provider: 06:53 Subjective/Events-last exam No complications noted. Sepsis Event Evaluation Height, Weight, BMI Height: 5'9.00" Weight: 149lbs. 6.0oz. 67.026170xe; 22.1 BMI Method:Stated Exam Exam Vital Signs Date Time Temp Pulse Resp B/P (MAP) Pulse Ox O2 Delivery O2 Flow Rate FiO2 07/14/19 04:00 98.2 87 20 136/89 (105) 94 Room Air 07/14/19 02:50 94 07/14/19 00:00 99.5 85 18 132/87 (102) 97 Room Air 07/13/19 22:44 95 07/13/19 21:00 100 Simple Mask 5.00 07/13/19 20:00 99.7 83 18 133/86 (102) 95 Room Air 07/13/19 19:08 97 07/13/19 18:40 100.0 85 14 132/83 (99) 95 Room Air 07/13/19 18:14 93 12 141/90 (107) 97 Room Air 07/13/19 17:15 83 26 141/90 (107) 98 Room Air 07/13/19 16:00 93 12 141/90 (107) 97 Room Air 07/13/19 13:44 100 Room Air 07/13/19 13:00 87 07/13/19 12:00 86 21 137/100 (112) 99 Room Air 07/13/19 11:55 Room Air 07/13/19 11:42 18 07/13/19 11:00 85 24 131/96 (108) 100 Simple Mask 5.00 07/13/19 11:00 98.4 07/13/19 10:45 81 07/13/19 10:45 80 14 131/93 (106) 100 Simple Mask 5.00 07/13/19 10:45 100 Simple Mask 5.00 07/13/19 07:05 95 Room Air 07/13/19 06:55 97.8 91 18 138/98 (111) 96 I & O 07/14/19 07:00 Intake Total 3690 ml Output Total 1500 ml Balance 2190 ml Height & Weight Height: 5'9.00" Weight: 149lbs. 6.0oz. 67.105244sr; 22.1 BMI Method:Stated General Appearance: No Apparent Distress, WD/WN HEENT: PERRL/EOMI, Normal ENT Inspection, Pharynx Normal Neck: Full Range of Motion, Non Tender, Supple Respiratory: Chest Non Tender, No Accessory Muscle Use, No Respiratory Distress, Decreased Breath Sounds Cardiovascular: Regular Rate, Rhythm Capillary Refill: Less Than 3 Seconds Gastrointestinal: normal bowel sounds, non tender, soft, no organomegaly Extremity: Normal Capillary Refill, No Pedal Edema Neurologic/Psychiatric: Alert, Oriented x3 Skin: Normal Color, Warm/Dry Lymphatic: No Adenopathy Results Lab Laboratory Tests 07/13/19 11:50 Assessment/Plan Assessment/Plan Lung mass with MLA s/p bronchoscopy with EBUS -Difficult extubation post procedure -Discharge this AM -F/u in my office next at 1PM. BRIE GARRETT DO Jul 14, 2019 06:54
[2019-07-14 08:00] VITALS: BP 135/88
== END 2019-07-14 09:23 | disposition home or self-care (01) ==
LOC: ENDO 06:48 → ICU 10:32 → 4TH 18:27 → ENDO 07-14 09:23
PROVIDERS: ATTEND Internal Medicine Critical Care Medicine
DX: D14.30 Benign neoplasm of unspecified bronchus and lung (principal); J40 Bronchitis, not specified as acute or chronic; J30.9 Allergic rhinitis, unspecified; R91.8 Other nonspecific abnormal finding of lung field; R59.0 Localized enlarged lymph nodes; R06.00 Dyspnea, unspecified; F17.210 Nicotine dependence, cigarettes, uncomplicated; I10 Essential (primary) hypertension; Z88.0 Allergy status to penicillin
CPT/HCPCS: 36415; 71045; 80053; 83735; 84100; 85025; 87015; 87070; 87101; 87116; 87205; 87206; 94640; 94760

== ENCOUNTER → 2019-07-19 | Outpatient (CLI) | payer SELFPAY ==
[~2019-07-19] MED LIST changes: -LACTATED RINGERS 1,000 ML IV ONE
--- NOTE | 2019-07-21 15:48 | Diagnostic Imaging Report ---
INDICATION: Mediastinal mass, weight loss. TECHNIQUE: PET/CT imaging was obtained from the base of the skull through the pelvis after the administration of 14.98 mCi of F-[address] imaging was utilized for localization and attenuation correction purposes. The low energy CT utilized for attenuation correction is not considered to be of high enough spatial resolution to allow in and of itself a separate anatomical analysis. PET images were obtained 1 hour after injection. Height is 5? 9? inches and weight is 145 pounds. COMPARISON: There are no prior PET/CT examinations available for comparison. FINDINGS: The previous CT chest exam of 06/30/2019 did note mediastinal adenopathy with a left hilar mass. On this exam the mediastinal adenopathy and left hilar mass are again identified. These masses are hypermetabolic with a maximum SUV of 7.1. There is subcarinal and pretracheal adenopathy on the left and there is also a small subcentimeter mass anterior to the aortic knob. There is also a sizable mass involving the left hilum. The left hilar mass is difficult to measure accurately, however, due to the absence of intravenous contrast. Also, in the interval since the prior exam the postobstructive atelectasis/infiltrate in the left infrahilar region has worsened. As noted on the previous study, there is another irregular parenchymal density near the left hemidiaphragm. This measures approximately 1.8 x 1.8 cm. This finding is somewhat hypermetabolic with a maximum SUV of approximately 3.3. This parenchymal density could also be neoplastic in nature. There is also a small, 8 mm, hypermetabolic node lying just lateral to the distal esophagus just anterior to the descending thoracic aorta (image 147 of [id number]). This has a maximum SUV of 3.5 and may well be involved by neoplasm. In addition, there is a 7 mm lytic lesion along the anterior aspects of the right vertebral body of T11. This has a maximum SUV of 6.3 and should be considered neoplastic as well. There is no other hypermetabolic activity to suggest the presence of malignancy. The CT images failed to show any sign of an acute abnormality. IMPRESSION: 1. The mediastinal adenopathy and the left hilar mass, seen on the recent CT chest exam, are hypermetabolic and should be considered neoplastic until proven otherwise. 2. There is also a small hypermetabolic node in the paraesophageal region near the diaphragm as well as a small lytic lesion within T12. There is also a poorly defined area of increased density in the left lung base near the hemidiaphragm These findings are most likely neoplastic as well. 3. There is no acute abnormality identified. However, the postobstructive pneumonia/atelectasis in the left lower lobe, seen previously, has worsened. Dictated by: Dictated on workstation # [id number]
== END ==
LOC: RAD 12:32
PROVIDERS: ATTEND Nurse Practitioner Family
DX: J98.59 Other diseases of mediastinum, not elsewhere classified (principal); M89.9 Disorder of bone, unspecified; R63.4 Abnormal weight loss; R91.8 Other nonspecific abnormal finding of lung field; R59.0 Localized enlarged lymph nodes

== ENCOUNTER → 2019-07-26 | Outpatient (CLI) | payer SELFPAY ==
[~2019-07-26] MED LIST changes: +GADOBUTROL 7.5 MMOL/7.5 ML (GADAVIST) VIAL IV ONE
--- NOTE | 2019-07-26 08:17 | Diagnostic Imaging Report ---
PROCEDURE: MR imaging of the brain with and without contrast. TECHNIQUE: Multiplanar, multisequence MR imaging of the brain was performed with and without contrast. INDICATION: Recent diagnosis of lung cancer. Currently asymptomatic. Pretreatment. COMPARISON: PET/CT on 07/19/2019. FINDINGS: No acute ischemia, mass, or hemorrhage. No mass effect or midline shift. Focal areas of T2/FLAIR hyperintense signal are seen in the periventricular and subcortical white matter. The ventricles, cortical sulci, and basilar cisterns are symmetric and unremarkable. The sellar and suprasellar regions have a normal appearance. No abnormal enhancement. The brainstem and posterior fossa are unremarkable. The paranasal sinuses and mastoid air cells demonstrate normal signal characteristics. The globes and orbits are symmetric and unremarkable. The scalp and calvarium have a normal appearance. IMPRESSION: 1. No acute ischemia, mass, or hemorrhage. No abnormal enhancement. 2. Focal areas of nonspecific T2/FLAIR hyperintense signal in the periventricular and subcortical white matter. This can be seen with chronic microvascular disease versus sequelae of migraine. Dictated by: Dictated on workstation # [id number]
== END ==
LOC: RAD 07:00
PROVIDERS: ATTEND Internal Medicine Hematology & Oncology
DX: C34.90 Malignant neoplasm of unspecified part of unspecified bronchus or lung (principal)
CPT/HCPCS: 70553

== ENCOUNTER 2019-07-29 05:33 | Outpatient (CLI) | payer SELFPAY ==
[~2019-07-29] VITALS: Ht 175.3 cm; Wt 67.8 kg
[~2019-07-29 05:33] MED LIST changes: -GADOBUTROL 7.5 MMOL/7.5 ML (GADAVIST) VIAL IV ONE
== END 2019-07-29 10:27 | disposition home or self-care (01) ==
LOC: PREOP 05:33
PROVIDERS: ATTEND Surgery
DX: Z01.818 Encounter for other preprocedural examination (principal)

== ENCOUNTER 2019-08-01 10:59 | Day surgery (SDC) | payer SELFPAY ==
[~2019-08-01] VITALS: Ht 175.3 cm; Wt 64.9 kg
[2019-08-01] VITALS (7 sets, daily range): BP systolic 100–111; BP diastolic 63–81
[2019-08-01] MEDS ORDERED: LACTATED RINGERS 1,000 ML IV PRN (11:07)
[2019-08-01] MEDS ORDERED: CLINDAMYCIN 600 MG/50 ML IVPB 50 ML IV ONE (11:15)
[2019-08-01] MEDS ORDERED: ALPR0.25 PO (11:44)
[2019-08-01] MEDS ORDERED: PANT40TA2 PO (11:44)
--- NOTE | 2019-08-01 11:54 | Progress Note-Pre Operative ---
Pre-Operative Progress Note H&P Reviewed The H&P was reviewed, patient examined and no changes noted. Date Seen by Provider: Aug 01, 2019 Time Seen by Provider: 11:53 Date H&P Reviewed: Aug 01, 2019 Time H&P Reviewed: 11:53 Pre-Operative Diagnosis: SMALL CELL CARCINOMA LEFT LUNG MARSHAL ROLON DO Aug 01, 2019 11:54
[2019-08-01] MEDS ORDERED: HYDR-3820 PO (11:55)
[2019-08-01] MEDS ORDERED: fentaNYL INJECTION 100 MCG/2 ML AMP ONE (11:55)
[2019-08-01] MEDS ORDERED: fentaNYL INJECTION 100 MCG/2 ML AMP IVP ONE (12:05)
[2019-08-01] MEDS ORDERED: HEParin (CENTRAL IV FLUSH) 500 UNIT/5 ML SYR ONE (12:18)
[2019-08-01] MEDS ORDERED: BUP/EPI 0.25% 1:200,000 (MARCAINE) 10 ML VIAL IJ ONE (12:18)
[2019-08-01] MEDS ORDERED: 0.9% SODIUM CHLORIDE PF INJ 20 ML VIAL ONE (12:18)
[2019-08-01] MEDS ORDERED: MIDAZOLAM 2 MG/2 ML (VERSED) VIAL ONE (13:08)
[2019-08-01] MEDS ORDERED: PROPOFOL INJECTION 50 ML IV ONE (13:31)
[2019-08-01] MEDS ORDERED: LIDOCAINE PF 2% 5 ML (XYLOCAINE) VIAL ONE (13:31)
--- NOTE | 2019-08-01 14:28 | Discharge Inst-Simple/Standard ---
Discharge Inst-Standard Patient Instructions/Follow Up Plan of Care/Instructions/FU: 2 weeks Lulu Activity as Tolerated: No Discharge Diet: Regular Diet Other Inst to Patient Follow up Appt: Make appointment for 2 week. Instructions: No lifting greater than 10 pounds. No strenuous activity. May shower in 24 hours, no tub bath or soaking. Use incentive spirometer at home as directed. No Smoking Skin/Wound Care: You have special glue over incisions it will fall off on its own. Symptoms to Report: Appetite Changes, Extremity Discoloration, Numbness/Tingling, Swelling In creased, Bleeding Excessive, Eyesight Changes, Pain Increased, Urine Color Change, Constipation(Persistent), Fever over 101 degree F, Pain/Pressure in chest, Urinating Difficulty, Cough Up/Vomit Blood, Heart Beat Irreg/Pounding, Pain/Pressure in jaw, Vaginal Bleeding Increase, Cramps in feet or legs, Lightheadedness, Pain/Pressure in shoulder, Diarrhea(Persistent), Memory Changes Suddenly, Questions/Concerns, Weight gain consecutive days, Dizziness/Fainting, Nausea/Vomiting, Shortness of Breath, Weight gain over 2 pounds If questions or concerns contact your physician Or seek help at emergency department. MARSHAL ROLON DO Aug 01, 2019 14:28
--- NOTE | 2019-08-01 14:29 | Progress Note-Post Operative ---
Post-Operative Progess Note Surgeon (s)/Hotel Front Office Manager (s) Surgeon MARSHAL ROLON DO Hotel Front Office Manager: na Pre-Operative Diagnosis SMALL CELL CARCINOMA LEFT LUNG Post-Operative Diagnosis same Procedure & Operative Findings Date of Procedure 08/01/19 Procedure Performed/Findings right ij u/s guided port placement Anesthesia Type mac c local Estimated Blood Loss Estimated blood loss (mL): min Specimens/Packing Specimens Removed na MARSHAL ROLON DO Aug 01, 2019 14:29
--- NOTE | 2019-08-01 14:35 | Diagnostic Imaging Report ---
INDICATION: Port-A-Cath placement. Fluoroscopic guidance. COMPARISON: None. TOTAL FLUOROSCOPY TIME: 22 seconds. TOTAL NUMBER OF FLUOROSCOPIC IMAGES SAVED: 1. FINDINGS: A single intraoperative image intensifier view of the right upper chest and lower neck was obtained during Port-A-Cath placement. The image provided shows a right internal jugular venous approach. Evaluation of the right chest for pneumothorax is suboptimal given the fluoroscopic modality. Please note, the interpreting radiologist was not present during the procedure. IMPRESSION: Fluoroscopic guidance was provided during Port-A-Cath placement. Dictated by: Dictated on workstation # [id number]
[2019-08-01] MEDS ORDERED: ONDANSETRON 4 MG/2 ML (SDV) Z0FRAN IVP PRN (14:45)
[2019-08-01] MEDS ORDERED: HYDROmorphone 2 MG/ML VIAL (DILAUDID) IV ONE (14:45)
--- NOTE | 2019-08-01 14:49 | Anesthesia-General Post-Op ---
MAC Patient Condition Mental Status/LOC: Same as Preop Cardiovascular: Satisfactory Nausea/Vomiting: Absent Respiratory: Satisfactory Pain: Controlled Complications: Absent Post Op Complications Complications None Follow Up Care/Instructions Patient Instructions None needed. Anesthesiology Discharge Order Discharge Order Patient is doing well, no complaints, stable vital signs, no apparent adverse anesthesia problems. No complications reported per nursing. SANGITA HERNÁNDEZ CRNA Aug 01, 2019 14:49
--- NOTE | 2019-08-01 15:12 | Diagnostic Imaging Report ---
INDICATION: Status post port placement. COMPARISON: 07/13/2019. FINDINGS: Single frontal radiographic view of the chest was obtained and demonstrates interval placement of right internal jugular Port-A-Cath, tip of which terminates in the SVC. Lungs continue to show patchy opacities within the left mid and lower lung field, although aeration is improved compared to prior study. Right lung remains clear. No large effusion or pneumothorax is seen on either side. Cardiac silhouette and pulmonary vasculature are within normal limits. IMPRESSION: 1. Right internal jugular Port-A-Cath with tip in the low SVC. No pneumothorax. 2. Improved patchy opacities in left mid and lower lung field. Dictated by: Dictated on workstation # [id number]
--- NOTE | 2019-08-02 02:59 | OPERATIVE REPORT ---
DATE OF SERVICE: 08/01/2019 PREOPERATIVE DIAGNOSIS: Small cell carcinoma, left lung. POSTOPERATIVE DIAGNOSIS: Small cell carcinoma, left lung. PROCEDURE: Right IJ ultrasound-guided port placement. SURGEON: Marshal Lawson DO ANESTHESIA: MAC with local. ESTIMATED BLOOD LOSS: Minimal. COMPLICATIONS: None. INDICATIONS: The patient is a 48-year-old male with small cell carcinoma of the left lung. He understands risks and benefits of having port placement. Consent was signed in the chart. DESCRIPTION OF PROCEDURE: The patient was taken to the operating suite. He was prepped and draped in sterile fashion. Timeout was performed. Using ultrasound, the right internal jugular vein was located. Local anesthetic was infiltrated and the right internal jugular vein was accessed using ultrasound and a micro access needle. Dark nonpulsatile blood was withdrawn. Micro access wire was inserted and the needle was removed. Fluoroscopy assured proper placement. An 11 blade scalpel was used to make a stab incision. Dilator sheath was advanced over the guidewire and the wire was removed along with the dilator. Normal guidewire was inserted through the sheath and the sheath was then removed. Fluoroscopy assured proper placement. The wire was then secured. Local anesthetic was infiltrated along the neck and down on to the right chest for pocket creation. A 15 blade scalpel was used to make a skin incision on the right chest dissected down to the subcutaneous tissues. Then, a small pocket was created with both sharp and blunt dissection. The dilator sheath was then advanced over the guidewire under fluoroscopy and the dilator and the wire were removed. The Groshong catheter was inserted through the sheath and sheath was then removed. The catheter was then tunneled from the insertion point down to the right chest pocket that was created. The catheter was then cut to length using fluoroscopy and secured to the port in usual fashion and placed within the pocket. The port was then accessed and withdrew blood without difficulty and flushed without difficulty first with saline and then with heparin. The subcutaneous tissues were then reapproximated using 3-0 Vicryl. The area was washed and dried and Skin Affix was placed over the incisions. The patient tolerated procedure well without any complications, was taken to recovery room in stable condition. Chest x-ray is pending. Job ID: [id number] DocumentID: [id number] Dictated Date: 08/01/2019 16:57:07 Mangle Press Catcher Date: 08/02/2019 02:58:21 Dictated By: MARSHAL LAWSON DO
== END 2019-08-01 15:48 | disposition home or self-care (01) ==
LOC: SDC 10:59
PROVIDERS: ATTEND Surgery
DX: C34.92 Malignant neoplasm of unspecified part of left bronchus or lung (principal); I10 Essential (primary) hypertension; Z88.0 Allergy status to penicillin; Z79.899 Other long term (current) drug therapy; Z79.891 Long term (current) use of opiate analgesic; Z87.891 Personal history of nicotine dependence; Z82.49 Family history of ischemic heart disease and other diseases of the circulatory system
CPT/HCPCS: 71045; 87081

== ENCOUNTER → 2019-09-22 | Outpatient (CLI) | payer SELFPAY ==
[~2019-09-22] MED LIST changes: +ALPR0.25 PO; +CATHETER FLUSH 10 ML SYR IV PRN; +HYDR-3820 PO; +PANT40TA2 PO
--- NOTE | 2019-09-22 13:41 | Diagnostic Imaging Report ---
INDICATION: Small cell lung cancer. TECHNIQUE: Multiple contiguous axial images were obtained through the chest and abdomen after the administration of intravenous contrast. Auto Exposure Controls were utilized during the CT exam to meet ALARA standards for radiation dose reduction. COMPARISON: Comparison made to prior chest CT of 06/30/2019 and to prior abdominal CT of 08/28/2008. CT chest findings: Compared to the prior study, the patient has had placement of a Port-A-Cath. Enlarged mediastinal nodes are again noted. The node in the anterior mediastinum measured about 1.0 x 1.1 cm, this measured about 8 mm on the previous study. The node in the AP window which was measured at 4.2 x 2.8 cm now measures about 3.6 x 2.4 cm. The enlarged left hilar node which had measured 3.5 x 2.5 cm now measures about 2.9 x 1.8 cm. Calcified nodes in the subcarinal region and right hilum are stable and are probably due to old granulomatous disease. Mass lesion in the left lower lobe just below the hilum had measured about 1.9 x 2.0 cm on the prior study and now measures about 1.6 x 1.8 cm. There are no enlarged axillary nodes or chest wall lesions. There is no pleural or pericardial fluid. There is a calcified granuloma in the right lower lobe. There is no other abnormality in the right lung. There is some atelectatic change in the anterior portion of the left lower lobe due to the above-mentioned perihilar lesion. CT abdomen findings: The liver shows two small hypodense lesions, one in the right lobe superiorly and one in the interlobar region. These are most likely due to cysts but these lesions are difficult to characterize due to their small size. The gallbladder and spleen show no mass lesion. There are calcified granulomata in the spleen. The adrenals and pancreas appear normal. The kidneys bilaterally appear normal. There is no retroperitoneal mass or adenopathy. There is no ascites or abnormal fluid collection. Visualized bowel loops show no obstruction. IMPRESSION: 1. CT chest demonstrates the left lower lobe lesion near the hilum to be slightly smaller than the prior study. The enlarged nodes in the left hilum and AP window have shown a mild decrease in size compared to the previous study. Borderline-sized node in the anterior mediastinum appears perhaps slightly larger than the previous study. There are old granulomatous changes, as above. There is some atelectatic change in the left lower lobe anteriorly. 2. CT abdomen demonstrates two small hypodense lesions in the liver which are most likely cysts but are difficult to characterize due to their small size. These are unchanged from the CT chest of 06/30/2019. They were not present on prior CT abdomen of 08/28/2008, however. There are old granulomatous changes in the spleen. There is no significant adenopathy or abnormal fluid collection. Dictated by: Dictated on workstation # [id number]
--- NOTE | 2019-09-22 15:47 | Diagnostic Imaging Report ---
INDICATION: Small cell lung carcinoma. TECHNIQUE: Patient was administered 25.1 mCi technetium 99m MDP intravenously and whole-body imaging was performed after a three-hour delay. COMPARISON: No prior bone scan is available for comparison. FINDINGS: There is normal uptake of activity by the axial and appendicular skeleton. There is uptake by both kidneys with excretion into the urinary bladder. No abnormal foci of tracer accumulation is seen to suggest osseous metastatic disease or fracture. IMPRESSION: Unremarkable whole body bone scan. Dictated by: Dictated on workstation # [id number]
== END ==
LOC: CARD 12:06
PROVIDERS: ATTEND Nurse Practitioner Adult Health
DX: Z01.89 Encounter for other specified special examinations (principal); C34.32 Malignant neoplasm of lower lobe, left bronchus or lung; C79.51 Secondary malignant neoplasm of bone
CPT/HCPCS: 71260; 74160; 78306

== ENCOUNTER → 2019-10-18 | Outpatient (CLI) | payer SELFPAY ==
[~2019-10-18] MED LIST changes: -CATHETER FLUSH 10 ML SYR IV PRN; +GADOBUTROL 7.5 MMOL/7.5 ML (GADAVIST) VIAL IV ONE
--- NOTE | 2019-10-18 10:49 | Diagnostic Imaging Report ---
PROCEDURE: MR imaging of the brain with and without contrast. TECHNIQUE: Multiplanar, multisequence MR imaging of the brain was performed with and without contrast. INDICATION: Headaches. Small cell lung cancer. COMPARISON: 07/26/2019. FINDINGS: Stable minimal nonspecific T2 hyperintensities in the supratentorial white matter. No new abnormal intracranial signal. No abnormal intracranial enhancement. No restricted water diffusion or hemosiderin deposition. Normal morphology including the major midline structures, sella, posterior fossa and cerebellar pontine angle. No hydrocephalus or extra-axial fluid collections. Normal intracranial arterial flow voids. The orbits are unremarkable. The paranasal sinuses and mastoids are clear. Normal bone marrow signal. IMPRESSION: No acute intracranial MRI findings. Stable nonspecific T2 hyperintensities in the supratentorial white matter of doubtful clinical significance. No findings specific for intracranial metastases. Dictated by: Dictated on workstation # [id number]
== END ==
LOC: RAD 09:30
PROVIDERS: ATTEND Nurse Practitioner Adult Health
DX: C34.32 Malignant neoplasm of lower lobe, left bronchus or lung (principal); R51 Headache
CPT/HCPCS: 70553

== ENCOUNTER 2019-10-19 13:50 | Outpatient (RCR) | payer SELFPAY ==
[2019-07-27 09:24] LABS: BASOPHILS % (AUTO) 0 % (0-10); EOSINOPHILS # (AUTO) 0.1 10^3/uL (0.0-0.3); EOSINOPHILS % (AUTO) 1 % (0-10); HEMATOCRIT 41 % (40-54); HEMOGLOBIN 14.8 G/DL (13.3-17.7); LYMPHOCYTES # (AUTO) 1.2 X 10^3 (1.0-4.0); LYMPHOCYTES % (AUTO) 16 % (12-44); MEAN CORPUSCULAR HEMOGLOBIN 31 PG (25-34); MEAN CORPUSCULAR HGB CONC 36 G/DL (32-36); MEAN CORPUSCULAR VOLUME 87 FL (80-99); MEAN PLATELET VOLUME 8.9 FL (7.4-10.4); MONOCYTES # (AUTO) 0.6 X 10^3 (0.0-1.0); MONOCYTES % (AUTO) 8 % (0-12); NEUTROPHILS # (AUTO) 5.5 X 10^3 (1.8-7.8); NEUTROPHILS % (AUTO) 75 % (42-75); PLATELET COUNT 294 10^3/uL (130-400); RED CELL DISTRIBUTION WIDTH 11.8 % (10.0-14.5); WHITE BLOOD COUNT 7.3 10^3/uL (4.3-11.0)
[2019-07-27 09:46] LABS: ALANINE AMINOTRANSFERASE 9 U/L (0-55); ALBUMIN 4.3 GM/DL (3.2-4.5); ALKALINE PHOSPHATASE 67 U/L (40-136); BILIRUBIN,TOTAL 0.6 MG/DL (0.1-1.0); BUN/CREATININE RATIO 8; CALCIUM 9.9 MG/DL (8.5-10.1); CARBON DIOXIDE 30 MMOL/L (21-32); CHLORIDE 101 MMOL/L (98-107); GFR ESTIMATED > 60; GLUCOSE 117 MG/DL (70-105); POTASSIUM 3.8 MMOL/L (3.6-5.0); SODIUM 138 MMOL/L (135-145); TOTAL PROTEIN 7.1 GM/DL (6.4-8.2)
[2019-08-03 10:53] LABS: BASOPHILS % (AUTO) 1 % (0-10); EOSINOPHILS # (AUTO) 0.1 10^3/uL (0.0-0.3); EOSINOPHILS % (AUTO) 1 % (0-10); HEMATOCRIT 41 % (40-54); HEMOGLOBIN 14.9 G/DL (13.3-17.7); LYMPHOCYTES # (AUTO) 1.5 X 10^3 (1.0-4.0); LYMPHOCYTES % (AUTO) 27 % (12-44); MEAN CORPUSCULAR HEMOGLOBIN 31 PG (25-34); MEAN CORPUSCULAR HGB CONC 36 G/DL (32-36); MEAN CORPUSCULAR VOLUME 86 FL (80-99); MEAN PLATELET VOLUME 9.3 FL (7.4-10.4); MONOCYTES # (AUTO) 0.1 X 10^3 (0.0-1.0); MONOCYTES % (AUTO) 2 % (0-12); NEUTROPHILS # (AUTO) 3.9 X 10^3 (1.8-7.8); NEUTROPHILS % (AUTO) 70 % (42-75); PLATELET COUNT 289 10^3/uL (130-400); RED CELL DISTRIBUTION WIDTH 11.3 % (10.0-14.5); WHITE BLOOD COUNT 5.6 10^3/uL (4.3-11.0)
[2019-08-03 11:13] LABS: BUN/CREATININE RATIO 12; CALCIUM 10.1 MG/DL (8.5-10.1); CARBON DIOXIDE 25 MMOL/L (21-32); CHLORIDE 97 MMOL/L (98-107); CREATININE SERUM 0.85 MG/DL (0.60-1.30); GFR ESTIMATED > 60; GLUCOSE 110 MG/DL (70-105); POTASSIUM 4.4 MMOL/L (3.6-5.0); SODIUM 134 MMOL/L (135-145)
[2019-08-09 16:04] LABS: BASOPHILS % (AUTO) 2 % (0-10); EOSINOPHILS % (AUTO) 2 % (0-10); HEMATOCRIT 37 % (40-54); HEMOGLOBIN 13.6 G/DL (13.3-17.7); LYMPHOCYTES % (AUTO) 61 % (12-44); MEAN CORPUSCULAR HEMOGLOBIN 32 PG (25-34); MEAN CORPUSCULAR HGB CONC 37 G/DL (32-36); MEAN CORPUSCULAR VOLUME 86 FL (80-99); MEAN PLATELET VOLUME 8.9 FL (7.4-10.4); MONOCYTES # (AUTO) 0.3 X 10^3 (0.0-1.0); MONOCYTES % (AUTO) 16 % (0-12); NEUTROPHILS # (AUTO) 0.3 X 10^3 (1.8-7.8); NEUTROPHILS % (AUTO) 19 % (42-75); PLATELET COUNT 189 10^3/uL (130-400); RED CELL DISTRIBUTION WIDTH 11.2 % (10.0-14.5); WHITE BLOOD COUNT 1.7 10^3/uL (4.3-11.0)
[2019-08-09 16:15] LABS: BUN/CREATININE RATIO 8; CALCIUM 9.8 MG/DL (8.5-10.1); CARBON DIOXIDE 29 MMOL/L (21-32); CHLORIDE 100 MMOL/L (98-107); CREATININE SERUM 0.84 MG/DL (0.60-1.30); GFR ESTIMATED > 60; GLUCOSE 112 MG/DL (70-105); SODIUM 138 MMOL/L (135-145)
[2019-08-17 10:32] LABS: BASOPHILS % (AUTO) 1 % (0-10); EOSINOPHILS % (AUTO) 0 % (0-10); HEMATOCRIT 38 % (40-54); HEMOGLOBIN 13.9 G/DL (13.3-17.7); LYMPHOCYTES # (AUTO) 0.9 X 10^3 (1.0-4.0); LYMPHOCYTES % (AUTO) 34 % (12-44); MEAN CORPUSCULAR HEMOGLOBIN 32 PG (25-34); MEAN CORPUSCULAR HGB CONC 37 G/DL (32-36); MEAN CORPUSCULAR VOLUME 86 FL (80-99); MEAN PLATELET VOLUME 8.6 FL (7.4-10.4); MONOCYTES # (AUTO) 0.7 X 10^3 (0.0-1.0); MONOCYTES % (AUTO) 24 % (0-12); NEUTROPHILS # (AUTO) 1.1 X 10^3 (1.8-7.8); NEUTROPHILS % (AUTO) 41 % (42-75); PLATELET COUNT 212 10^3/uL (130-400); RED CELL DISTRIBUTION WIDTH 11.9 % (10.0-14.5); WHITE BLOOD COUNT 2.8 10^3/uL (4.3-11.0)
[2019-08-17 10:51] LABS: ALANINE AMINOTRANSFERASE 24 U/L (0-55); ALBUMIN 4.4 GM/DL (3.2-4.5); ALKALINE PHOSPHATASE 59 U/L (40-136); BILIRUBIN,TOTAL 0.5 MG/DL (0.1-1.0); BUN/CREATININE RATIO 10; CALCIUM 9.8 MG/DL (8.5-10.1); CARBON DIOXIDE 27 MMOL/L (21-32); CHLORIDE 99 MMOL/L (98-107); CREATININE SERUM 0.81 MG/DL (0.60-1.30); GFR ESTIMATED > 60; GLUCOSE 116 MG/DL (70-105); POTASSIUM 3.9 MMOL/L (3.6-5.0); SODIUM 137 MMOL/L (135-145)
--- NOTE | 2019-08-17 12:44 | Diagnostic Imaging Report ---
INDICATION: Small cell carcinoma of the lung. TIME OF EXAM: 11:44 AM Correlation is made with prior chest from 08/01/2019. FINDINGS: Right chest wall port has tip overlying the SVC. There are calcified lymph nodes in the mediastinum and right hilum. Mild parenchymal density in the left base is noted. Right lung is clear. Pulmonary vascularity is normal. No effusion or pneumothorax is seen. IMPRESSION: Development of mild parenchymal density in the left base consistent with infiltrate or atelectasis. No other significant abnormality is seen. Dictated by: Dictated on workstation # [id number]
[2019-08-24 10:06] LABS: BASOPHILS % (AUTO) 0 % (0-10); EOSINOPHILS % (AUTO) 0 % (0-10); HEMATOCRIT 33 % (40-54); HEMOGLOBIN 12.1 G/DL (13.3-17.7); LYMPHOCYTES # (AUTO) 1.2 X 10^3 (1.0-4.0); LYMPHOCYTES % (AUTO) 8 % (12-44); MEAN CORPUSCULAR HEMOGLOBIN 31 PG (25-34); MEAN CORPUSCULAR HGB CONC 36 G/DL (32-36); MEAN CORPUSCULAR VOLUME 86 FL (80-99); MEAN PLATELET VOLUME 8.9 FL (7.4-10.4); MONOCYTES # (AUTO) 0.2 X 10^3 (0.0-1.0); MONOCYTES % (AUTO) 1 % (0-12); NEUTROPHILS # (AUTO) 13.7 X 10^3 (1.8-7.8); NEUTROPHILS % (AUTO) 90 % (42-75); PLATELET COUNT 236 10^3/uL (130-400); RED CELL DISTRIBUTION WIDTH 11.9 % (10.0-14.5); WHITE BLOOD COUNT 15.1 10^3/uL (4.3-11.0)
[2019-08-24 10:39] LABS: BUN/CREATININE RATIO 14; CALCIUM 9.3 MG/DL (8.5-10.1); CARBON DIOXIDE 28 MMOL/L (21-32); CHLORIDE 100 MMOL/L (98-107); GFR ESTIMATED > 60; GLUCOSE 102 MG/DL (70-105); POTASSIUM 3.5 MMOL/L (3.6-5.0); SODIUM 135 MMOL/L (135-145)
[2019-08-31 14:33] LABS: BASOPHILS % (AUTO) 0 % (0-10); EOSINOPHILS % (AUTO) 0 % (0-10); HEMATOCRIT 37 % (40-54); HEMOGLOBIN 13.3 G/DL (13.3-17.7); LYMPHOCYTES # (AUTO) 1.7 X 10^3 (1.0-4.0); LYMPHOCYTES % (AUTO) 18 % (12-44); MEAN CORPUSCULAR HEMOGLOBIN 32 PG (25-34); MEAN CORPUSCULAR HGB CONC 36 G/DL (32-36); MEAN CORPUSCULAR VOLUME 89 FL (80-99); MONOCYTES # (AUTO) 0.8 X 10^3 (0.0-1.0); MONOCYTES % (AUTO) 9 % (0-12); NEUTROPHILS # (AUTO) 6.7 X 10^3 (1.8-7.8); NEUTROPHILS % (AUTO) 73 % (42-75); PLATELET COUNT 172 10^3/uL (130-400); RED CELL DISTRIBUTION WIDTH 13.3 % (10.0-14.5); WHITE BLOOD COUNT 9.2 10^3/uL (4.3-11.0)
[2019-08-31 14:50] LABS: BUN/CREATININE RATIO 6; CALCIUM 9.6 MG/DL (8.5-10.1); CARBON DIOXIDE 28 MMOL/L (21-32); CHLORIDE 99 MMOL/L (98-107); CREATININE SERUM 0.78 MG/DL (0.60-1.30); GFR ESTIMATED > 60; GLUCOSE 119 MG/DL (70-105); POTASSIUM 3.3 MMOL/L (3.6-5.0); SODIUM 138 MMOL/L (135-145)
[2019-09-07 13:12] LABS: BASOPHILS % (AUTO) 0 % (0-10); EOSINOPHILS % (AUTO) 0 % (0-10); HEMATOCRIT 35 % (40-54); HEMOGLOBIN 12.4 G/DL (13.3-17.7); LYMPHOCYTES # (AUTO) 1.4 X 10^3 (1.0-4.0); LYMPHOCYTES % (AUTO) 30 % (12-44); MEAN CORPUSCULAR HEMOGLOBIN 32 PG (25-34); MEAN CORPUSCULAR HGB CONC 35 G/DL (32-36); MEAN CORPUSCULAR VOLUME 89 FL (80-99); MEAN PLATELET VOLUME 8.9 FL (7.4-10.4); MONOCYTES # (AUTO) 0.6 X 10^3 (0.0-1.0); MONOCYTES % (AUTO) 13 % (0-12); NEUTROPHILS # (AUTO) 2.5 X 10^3 (1.8-7.8); NEUTROPHILS % (AUTO) 57 % (42-75); PLATELET COUNT 250 10^3/uL (130-400); WHITE BLOOD COUNT 4.5 10^3/uL (4.3-11.0)
[2019-09-07 13:32] LABS: ALANINE AMINOTRANSFERASE 13 U/L (0-55); ALKALINE PHOSPHATASE 57 U/L (40-136); BILIRUBIN,TOTAL 0.5 MG/DL (0.1-1.0); BUN/CREATININE RATIO 9; CALCIUM 9.4 MG/DL (8.5-10.1); CARBON DIOXIDE 30 MMOL/L (21-32); CHLORIDE 101 MMOL/L (98-107); CREATININE SERUM 0.76 MG/DL (0.60-1.30); GFR ESTIMATED > 60; GLUCOSE 103 MG/DL (70-105); MAGNESIUM 1.8 MG/DL (1.6-2.4); POTASSIUM 3.6 MMOL/L (3.6-5.0); SODIUM 140 MMOL/L (135-145); TOTAL PROTEIN 6.2 GM/DL (6.4-8.2)
[2019-09-14 14:19] LABS: BASOPHILS # (AUTO) 0.1 10^3/uL (0.0-0.1); BASOPHILS % (AUTO) 0 % (0-10); EOSINOPHILS % (AUTO) 0 % (0-10); HEMATOCRIT 33 % (40-54); HEMOGLOBIN 11.7 G/DL (13.3-17.7); LYMPHOCYTES # (AUTO) 1.6 X 10^3 (1.0-4.0); LYMPHOCYTES % (AUTO) 7 % (12-44); MEAN CORPUSCULAR HEMOGLOBIN 33 PG (25-34); MEAN CORPUSCULAR HGB CONC 35 G/DL (32-36); MEAN CORPUSCULAR VOLUME 92 FL (80-99); MEAN PLATELET VOLUME 9.1 FL (7.4-10.4); MONOCYTES # (AUTO) 0.3 X 10^3 (0.0-1.0); MONOCYTES % (AUTO) 1 % (0-12); NEUTROPHILS % (AUTO) 92 % (42-75); PLATELET COUNT 264 10^3/uL (130-400); RED CELL DISTRIBUTION WIDTH 13.8 % (10.0-14.5)
[2019-09-14 14:44] LABS: BUN/CREATININE RATIO 10; CARBON DIOXIDE 29 MMOL/L (21-32); CHLORIDE 101 MMOL/L (98-107); CREATININE SERUM 0.71 MG/DL (0.60-1.30); GFR ESTIMATED > 60; GLUCOSE 140 MG/DL (70-105); POTASSIUM 3.2 MMOL/L (3.6-5.0); SODIUM 138 MMOL/L (135-145)
[2019-09-21 13:40] LABS: BASOPHILS % (AUTO) 0 % (0-10); EOSINOPHILS # (AUTO) 0.1 10^3/uL (0.0-0.3); EOSINOPHILS % (AUTO) 1 % (0-10); HEMATOCRIT 34 % (40-54); HEMOGLOBIN 11.7 G/DL (13.3-17.7); LYMPHOCYTES # (AUTO) 2.1 X 10^3 (1.0-4.0); LYMPHOCYTES % (AUTO) 21 % (12-44); MEAN CORPUSCULAR HEMOGLOBIN 32 PG (25-34); MEAN CORPUSCULAR HGB CONC 35 G/DL (32-36); MEAN CORPUSCULAR VOLUME 94 FL (80-99); MEAN PLATELET VOLUME 9.1 FL (7.4-10.4); MONOCYTES # (AUTO) 0.8 X 10^3 (0.0-1.0); MONOCYTES % (AUTO) 9 % (0-12); NEUTROPHILS # (AUTO) 6.7 X 10^3 (1.8-7.8); NEUTROPHILS % (AUTO) 69 % (42-75); PLATELET COUNT 187 10^3/uL (130-400); WHITE BLOOD COUNT 9.6 10^3/uL (4.3-11.0)
[2019-09-21 14:00] LABS: BUN/CREATININE RATIO 9; CALCIUM 8.8 MG/DL (8.5-10.1); CARBON DIOXIDE 27 MMOL/L (21-32); CHLORIDE 103 MMOL/L (98-107); CREATININE SERUM 0.77 MG/DL (0.60-1.30); GFR ESTIMATED > 60; GLUCOSE 124 MG/DL (70-105); POTASSIUM 3.1 MMOL/L (3.6-5.0); SODIUM 139 MMOL/L (135-145)
[2019-09-27 11:13] LABS: BASOPHILS % (AUTO) 0 % (0-10); EOSINOPHILS % (AUTO) 1 % (0-10); HEMATOCRIT 36 % (40-54); HEMOGLOBIN 12.8 G/DL (13.3-17.7); LYMPHOCYTES # (AUTO) 1.4 X 10^3 (1.0-4.0); LYMPHOCYTES % (AUTO) 21 % (12-44); MEAN CORPUSCULAR HEMOGLOBIN 33 PG (25-34); MEAN CORPUSCULAR HGB CONC 35 G/DL (32-36); MEAN CORPUSCULAR VOLUME 93 FL (80-99); MONOCYTES # (AUTO) 0.5 X 10^3 (0.0-1.0); MONOCYTES % (AUTO) 8 % (0-12); NEUTROPHILS # (AUTO) 4.5 X 10^3 (1.8-7.8); NEUTROPHILS % (AUTO) 70 % (42-75); PLATELET COUNT 217 10^3/uL (130-400); RED CELL DISTRIBUTION WIDTH 14.4 % (10.0-14.5); WHITE BLOOD COUNT 6.4 10^3/uL (4.3-11.0)
[2019-09-27 11:31] LABS: ALANINE AMINOTRANSFERASE 10 U/L (0-55); ALBUMIN 4.1 GM/DL (3.2-4.5); ALKALINE PHOSPHATASE 69 U/L (40-136); BILIRUBIN,TOTAL 0.5 MG/DL (0.1-1.0); BUN/CREATININE RATIO 10; CALCIUM 9.1 MG/DL (8.5-10.1); CARBON DIOXIDE 25 MMOL/L (21-32); CHLORIDE 101 MMOL/L (98-107); CREATININE SERUM 0.84 MG/DL (0.60-1.30); GFR ESTIMATED > 60; GLUCOSE 175 MG/DL (70-105); POTASSIUM 3.7 MMOL/L (3.6-5.0); SODIUM 137 MMOL/L (135-145); TOTAL PROTEIN 6.1 GM/DL (6.4-8.2)
[2019-10-05 13:50] LABS: BASOPHILS # (AUTO) 0.1 10^3/uL (0.0-0.1); BASOPHILS % (AUTO) 1 % (0-10); EOSINOPHILS # (AUTO) 0.1 10^3/uL (0.0-0.3); EOSINOPHILS % (AUTO) 1 % (0-10); HEMATOCRIT 34 % (40-54); HEMOGLOBIN 11.7 G/DL (13.3-17.7); LYMPHOCYTES # (AUTO) 1.1 X 10^3 (1.0-4.0); LYMPHOCYTES % (AUTO) 15 % (12-44); MEAN CORPUSCULAR HEMOGLOBIN 33 PG (25-34); MEAN CORPUSCULAR HGB CONC 34 G/DL (32-36); MEAN CORPUSCULAR VOLUME 95 FL (80-99); MEAN PLATELET VOLUME 9.4 FL (7.4-10.4); MONOCYTES # (AUTO) 0.9 X 10^3 (0.0-1.0); MONOCYTES % (AUTO) 12 % (0-12); NEUTROPHILS # (AUTO) 5.4 X 10^3 (1.8-7.8); NEUTROPHILS % (AUTO) 72 % (42-75); PLATELET COUNT 161 10^3/uL (130-400); RED CELL DISTRIBUTION WIDTH 13.9 % (10.0-14.5); WHITE BLOOD COUNT 7.6 10^3/uL (4.3-11.0)
[2019-10-05 14:07] LABS: BUN/CREATININE RATIO 12; CALCIUM 9.3 MG/DL (8.5-10.1); CARBON DIOXIDE 30 MMOL/L (21-32); CHLORIDE 103 MMOL/L (98-107); CREATININE SERUM 0.73 MG/DL (0.60-1.30); GFR ESTIMATED > 60; GLUCOSE 118 MG/DL (70-105); POTASSIUM 3.8 MMOL/L (3.6-5.0); SODIUM 138 MMOL/L (135-145)
[2019-10-11 13:54] LABS: BASOPHILS % (AUTO) 1 % (0-10); EOSINOPHILS # (AUTO) 0.1 10^3/uL (0.0-0.3); EOSINOPHILS % (AUTO) 1 % (0-10); HEMATOCRIT 38 % (40-54); HEMOGLOBIN 13.7 G/DL (13.3-17.7); LYMPHOCYTES # (AUTO) 2.1 X 10^3 (1.0-4.0); LYMPHOCYTES % (AUTO) 32 % (12-44); MEAN CORPUSCULAR HEMOGLOBIN 33 PG (25-34); MEAN CORPUSCULAR HGB CONC 36 G/DL (32-36); MEAN CORPUSCULAR VOLUME 93 FL (80-99); MEAN PLATELET VOLUME 9.2 FL (7.4-10.4); MONOCYTES # (AUTO) 0.5 X 10^3 (0.0-1.0); MONOCYTES % (AUTO) 7 % (0-12); NEUTROPHILS % (AUTO) 60 % (42-75); PLATELET COUNT 215 10^3/uL (130-400); WHITE BLOOD COUNT 6.7 10^3/uL (4.3-11.0)
[2019-10-11 14:13] LABS: BUN/CREATININE RATIO 7; CALCIUM 9.9 MG/DL (8.5-10.1); CARBON DIOXIDE 26 MMOL/L (21-32); CHLORIDE 100 MMOL/L (98-107); CREATININE SERUM 0.86 MG/DL (0.60-1.30); GFR ESTIMATED > 60; GLUCOSE 143 MG/DL (70-105); POTASSIUM 3.5 MMOL/L (3.6-5.0); SODIUM 138 MMOL/L (135-145)
[~2019-10-19] VITALS: Ht 175.3 cm; Wt 62.1 kg
[~2019-10-19 13:50] MED LIST changes: +ATEZOLIZUMAB 1,200 MG in NS (IVPB) CANCER CENTER 250 ML IV SCH; +ETOPOSIDE 170 MG in NORMAL SALINE (CANCER CENTER) 500 ML IV SCH; +ETOPOSIDE 180 MG in NORMAL SALINE (CANCER CENTER) 500 ML IV SCH; +FLU QUADRIvalent (5+ YOA) 2019-2020 (Cancer Ctr) 0.5 ML IM ONE; +FOSAPREPITANT DIMEGLUMINE 150 MG in NS (IVPB) CANCER CENTER ONLY 150 ML IV SCH; -GADOBUTROL 7.5 MMOL/7.5 ML (GADAVIST) VIAL IV ONE; +NS (IVPB) CANCER CENTER 250 ML ONE; +NS IV 1000 ML (CANCER CTR) 1,000 ML ONE; +NS IV 1000 ML (CANCER CTR) IV SCH; +NS IV 500 ML (CANCER CENTER) 500 ML ONE; +ONDANSETRON MDV (CANCER CENTER 16 MG, DEXAMETHASONE INJECTION 10 MG in NS (IVPB) CANCER... IV SCH; +PALONOSETRON HCL 0.25 MG, DEXAMETHASONE INJECTION 10 MG in NS (IVPB) CANCER CENTER 50 ML IV SCH; +PEGFILGRASTIM 6 MG/0.6ML NEULASTA SC SCH; +morphine INJ 4 MG/ML 1 ML (CANCER CTR) IV NR; +morphine INJ 4 MG/ML 1 ML (CANCER CTR) IV ONE; +morphine INJ 4 MG/ML 1 ML (CANCER CTR) IV PRN; +morphine INJ 4 MG/ML 1 ML (CANCER CTR) ONE
[2019-10-19 14:05] LABS: BASOPHILS % (AUTO) 1 % (0-10); EOSINOPHILS # (AUTO) 0.1 10^3/uL (0.0-0.3); EOSINOPHILS % (AUTO) 2 % (0-10); HEMATOCRIT 36 % (40-54); HEMOGLOBIN 12.5 G/DL (13.3-17.7); LYMPHOCYTES # (AUTO) 1.8 X 10^3 (1.0-4.0); LYMPHOCYTES % (AUTO) 35 % (12-44); MEAN CORPUSCULAR HEMOGLOBIN 33 PG (25-34); MEAN CORPUSCULAR HGB CONC 35 G/DL (32-36); MEAN CORPUSCULAR VOLUME 96 FL (80-99); MONOCYTES # (AUTO) 0.6 X 10^3 (0.0-1.0); MONOCYTES % (AUTO) 11 % (0-12); NEUTROPHILS # (AUTO) 2.7 X 10^3 (1.8-7.8); NEUTROPHILS % (AUTO) 53 % (42-75); PLATELET COUNT 223 10^3/uL (130-400); RED CELL DISTRIBUTION WIDTH 13.6 % (10.0-14.5); WHITE BLOOD COUNT 5.2 10^3/uL (4.3-11.0)
[2019-10-19 14:21] LABS: BUN/CREATININE RATIO 10; CARBON DIOXIDE 28 MMOL/L (21-32); CHLORIDE 104 MMOL/L (98-107); CREATININE SERUM 0.79 MG/DL (0.60-1.30); GFR ESTIMATED > 60; GLUCOSE 119 MG/DL (70-105); POTASSIUM 3.6 MMOL/L (3.6-5.0); SODIUM 141 MMOL/L (135-145)
== END 2019-10-20 | disposition home or self-care (01) ==
LOC: ONC 13:50
PROVIDERS: ATTEND Internal Medicine Hematology & Oncology
DX: C79.51 Secondary malignant neoplasm of bone (principal); C34.32 Malignant neoplasm of lower lobe, left bronchus or lung; I10 Essential (primary) hypertension
CPT/HCPCS: 36415; 36591; 71046; 80048; 80053; 83615; 83735; 85025; 96367; 96372; 96375; 96376; 96413; 96417; 99213; 99214

== ENCOUNTER 2019-12-08 13:31 | Outpatient (RCR) | payer OTHER ==
[~2019-12-08 13:31] MED LIST changes: -ATEZOLIZUMAB 1,200 MG in NS (IVPB) CANCER CENTER 250 ML IV SCH; -ETOPOSIDE 170 MG in NORMAL SALINE (CANCER CENTER) 500 ML IV SCH; -ETOPOSIDE 180 MG in NORMAL SALINE (CANCER CENTER) 500 ML IV SCH; -FLU QUADRIvalent (5+ YOA) 2019-2020 (Cancer Ctr) 0.5 ML IM ONE; -FOSAPREPITANT DIMEGLUMINE 150 MG in NS (IVPB) CANCER CENTER ONLY 150 ML IV SCH; -NS (IVPB) CANCER CENTER 250 ML ONE; -NS IV 1000 ML (CANCER CTR) 1,000 ML ONE; -NS IV 1000 ML (CANCER CTR) IV SCH; -NS IV 500 ML (CANCER CENTER) 500 ML ONE; -OMEP20CA13; +OMEP20CA18; -ONDANSETRON MDV (CANCER CENTER 16 MG, DEXAMETHASONE INJECTION 10 MG in NS (IVPB) CANCER... IV SCH; -PALONOSETRON HCL 0.25 MG, DEXAMETHASONE INJECTION 10 MG in NS (IVPB) CANCER CENTER 50 ML IV SCH; -PEGFILGRASTIM 6 MG/0.6ML NEULASTA SC SCH; -morphine INJ 4 MG/ML 1 ML (CANCER CTR) IV NR; -morphine INJ 4 MG/ML 1 ML (CANCER CTR) IV ONE; -morphine INJ 4 MG/ML 1 ML (CANCER CTR) IV PRN; -morphine INJ 4 MG/ML 1 ML (CANCER CTR) ONE
== END 2020-01-20 14:43 | disposition home or self-care (01) ==
PROVIDERS: ATTEND Nurse Practitioner Adult Health
DX: C34.90 Malignant neoplasm of unspecified part of unspecified bronchus or lung (principal); C79.51 Secondary malignant neoplasm of bone

== ENCOUNTER → 2019-12-22 | Outpatient (CLI) | payer OTHER ==
[~2019-12-22] MED LIST changes: +GADOBUTROL 7.5 MMOL/7.5 ML (GADAVIST) VIAL IV ONE; +HOLD METFORMIN - RECEIVED CONTRAST 20 ML VIAL IV SCH; +IOHEXOL 350 MG/ML 100 ML (OMNIPAQUE 350) VIAL IV ONE; +NS 100 ML (IVPB) BAG IV ONE; +OMEP-280; -OMEP20CA18
--- NOTE | 2019-12-22 12:45 | Diagnostic Imaging Report ---
PROCEDURE: CT chest and abdomen with contrast. TECHNIQUE: Multiple contiguous axial images were obtained through the chest and abdomen after the administration of intravenous contrast. Auto Exposure Controls were utilized during the CT exam to meet ALARA standards for radiation dose reduction. All CT scans use one or more of the following dose optimizing techniques: automated exposure control, MA and/or KvP adjustment based on patient size and exam type or iterative reconstruction. INDICATION: Small cell lung carcinoma. Patient complains of dizziness and visual change. COMPARISON: Correlation is made with prior CT of the chest and abdomen from 09/22/2019. FINDINGS: CT chest: Right chest wall port remains in place with tip at the SVC right atrial junction. No axillary lymphadenopathy is detected. Small nodule in the anterior mediastinum prevascular region measures approximately 1.0 x 1.1 cm compared with 1.1 x 1.0 cm on prior. Soft tissue mass in the AP window measures 3.2 x 2.6 cm compared with 3.6 x 2.4 cm on prior. Left hilar mass measures 2.5 x 1.6 cm compared with 2.9 x 1.8 cm. Subcarinal and right hilar calcified nodes are again noted and unchanged. No pericardial or pleural fluid is detected. Density in the left lower lobe anteriorly just below the level of the left hilum appears to be slightly smaller measuring 1.9 x 1.3 cm compared with 1.8 x 1.6 cm. There has been partial clearing of some infiltrate or atelectasis in the left lower lobe since prior. There is an area of density in the left lower lobe which appears improved measuring 1.5 x 0.8 cm compared with 1.8 x 1.1 cm on prior. No new parenchymal mass is detected. There is a lucency within a lower thoracic vertebral body, approximately T11. There has been some further loss of height of this vertebral body since prior CT, consistent with a probable pathologic compression fracture. Remaining bony structures are unremarkable. IMPRESSION: 1. Overall improved appearance of the chest with reduction in size of mediastinal, left hilar and left lower lobe masses when compared with CT study from 09/22/2019. No new parenchymal mass is detected. 2. Lytic lesion in T11 vertebral body. There has been some further slight progression of loss of height of this vertebral body since prior CT, suggestive of pathologic compression fracture, exact age indeterminate. CT abdomen: Previously noted two hepatic low densities are stable and again most likely cysts. Gallbladder is unremarkable. No new liver mass is detected. The pancreas and spleen are unremarkable. No adrenal mass is detected. Kidneys are unremarkable. Aorta is nonaneurysmal. No central, retroperitoneal or mesenteric lymphadenopathy is detected. The bowel loops are normal caliber. There is no ascites. Bony structures are unremarkable. IMPRESSION: Continued stable unremarkable CT of the abdomen. Dictated by: Dictated on workstation # [id number]
--- NOTE | 2019-12-22 15:23 | Diagnostic Imaging Report ---
INDICATION: Small cell lung carcinoma as well as dizziness and visual changes. TECHNIQUE: Patient was administered 24.8 mCi of technetium-99m MDP intravenously, and whole body imaging was performed after a 3-hour delay. COMPARISON: Comparison is made with prior whole body bone scan from 09/22/2019. FINDINGS: There is normal uptake of activity by the axial and appendicular skeleton. There is uptake by the kidneys with excretion into the urinary bladder. Mild uptake at the T11 level is noted, likely accounting for the lytic lesion and compression deformity noted on recent CT. No other suspicious foci are identified. IMPRESSION: T11 mild uptake, corresponding to the CT abnormality. No other bone scan abnormality is detected. Dictated by: Dictated on workstation # [id number]
--- NOTE | 2019-12-22 17:39 | Diagnostic Imaging Report ---
PROCEDURE: MR imaging of the brain with and without contrast. TECHNIQUE: Multiplanar, multisequence MR imaging of the brain was performed with and without contrast. INDICATION: 49-year-old male with history of small cell lung CA, presents with blurred vision and dizziness. COMPARISONS: 10/18/2019. FINDINGS: Midline structures are not displaced. Lateral, third, and fourth ventricles are normal in size, shape, and anatomic position. There is no mass, mass effect, hydrocephalus, or hemorrhage. No abnormal areas of enhancement are seen. No areas of diffusion restriction or diffusion signal abnormalities are seen. Green-white differentiation is well maintained and there is no sulcal effacement. There are few scattered nonspecific white matter changes similar to the previous study. There are no abnormal extra-axial fluid collections or hemorrhage. Petrous apices as well as the seventh and eighth nerve complexes are normal. Semicircular canals and cochlea show normal signal. Visualized vascular flow voids are unremarkable. Craniovertebral junction is normal. Sellar and suprasellar regions are unremarkable. Sinuses, orbits, and mastoid air cells are normal. IMPRESSION: Few scattered nonspecific white matter changes, otherwise unremarkable pre and post contrast MRI brain. Dictated by: Dictated on workstation # [id number]
== END ==
LOC: RAD 11:34
PROVIDERS: ATTEND Nurse Practitioner Adult Health
DX: Z01.89 Encounter for other specified special examinations (principal); C34.32 Malignant neoplasm of lower lobe, left bronchus or lung; C79.51 Secondary malignant neoplasm of bone; R63.4 Abnormal weight loss
CPT/HCPCS: 70553; 71260; 74160; 78306

== ENCOUNTER 2020-01-16 12:38 | Outpatient (RCR) | payer OTHER ==
[2019-10-25 11:01] LABS: BASOPHILS % (AUTO) 1 % (0-10); EOSINOPHILS # (AUTO) 0.1 10^3/uL (0.0-0.3); EOSINOPHILS % (AUTO) 2 % (0-10); HEMATOCRIT 36 % (40-54); LYMPHOCYTES # (AUTO) 1.6 X 10^3 (1.0-4.0); LYMPHOCYTES % (AUTO) 25 % (12-44); MEAN CORPUSCULAR HEMOGLOBIN 34 PG (25-34); MEAN CORPUSCULAR HGB CONC 36 G/DL (32-36); MEAN CORPUSCULAR VOLUME 94 FL (80-99); MEAN PLATELET VOLUME 9.2 FL (7.4-10.4); MONOCYTES # (AUTO) 0.5 X 10^3 (0.0-1.0); MONOCYTES % (AUTO) 9 % (0-12); NEUTROPHILS # (AUTO) 3.9 X 10^3 (1.8-7.8); NEUTROPHILS % (AUTO) 64 % (42-75); PLATELET COUNT 297 10^3/uL (130-400); RED CELL DISTRIBUTION WIDTH 12.9 % (10.0-14.5); WHITE BLOOD COUNT 6.1 10^3/uL (4.3-11.0)
[2019-10-25 11:26] LABS: ALANINE AMINOTRANSFERASE 12 U/L (0-55); ALBUMIN 4.3 GM/DL (3.2-4.5); ALKALINE PHOSPHATASE 51 U/L (40-136); BILIRUBIN,TOTAL 0.5 MG/DL (0.1-1.0); BUN/CREATININE RATIO 8; CALCIUM 9.3 MG/DL (8.5-10.1); CARBON DIOXIDE 27 MMOL/L (21-32); CHLORIDE 102 MMOL/L (98-107); CREATININE SERUM 0.83 MG/DL (0.60-1.30); GFR ESTIMATED > 60; GLUCOSE 130 MG/DL (70-105); MAGNESIUM 1.8 MG/DL (1.6-2.4); POTASSIUM 3.5 MMOL/L (3.6-5.0); SODIUM 140 MMOL/L (135-145); TOTAL PROTEIN 6.3 GM/DL (6.4-8.2)
--- NOTE | 2019-10-25 15:39 | Diagnostic Imaging Report ---
INDICATION: Left chest pain. TIME OF EXAM: 2:46 p.m. COMPARISON: Correlation is made with prior chest from 08/17/2019. FINDINGS: Right chest wall port has tip overlying the SVC. Multiple calcified lymph nodes in the right hilum and subcarinal region are again noted. Lungs appear to be clear. There has been improved aeration to the left base since the prior chest radiograph. No pneumothorax is detected. There is no effusion. IMPRESSION: No acute cardiopulmonary process is detected. Dictated by: Dictated on workstation # [id number]
[2019-11-14 15:46] LABS: BASOPHILS % (AUTO) 0 % (0-10); EOSINOPHILS % (AUTO) 1 % (0-10); HEMATOCRIT 37 % (40-54); HEMOGLOBIN 13.1 G/DL (13.3-17.7); LYMPHOCYTES # (AUTO) 2.1 X 10^3 (1.0-4.0); LYMPHOCYTES % (AUTO) 36 % (12-44); MEAN CORPUSCULAR HEMOGLOBIN 34 PG (25-34); MEAN CORPUSCULAR HGB CONC 36 G/DL (32-36); MEAN CORPUSCULAR VOLUME 94 FL (80-99); MEAN PLATELET VOLUME 8.7 FL (7.4-10.4); MONOCYTES # (AUTO) 0.7 X 10^3 (0.0-1.0); MONOCYTES % (AUTO) 12 % (0-12); NEUTROPHILS # (AUTO) 2.9 X 10^3 (1.8-7.8); NEUTROPHILS % (AUTO) 51 % (42-75); PLATELET COUNT 280 10^3/uL (130-400); RED CELL DISTRIBUTION WIDTH 12.4 % (10.0-14.5); WHITE BLOOD COUNT 5.7 10^3/uL (4.3-11.0)
[2019-11-14 16:09] LABS: BUN/CREATININE RATIO 8; CALCIUM 9.7 MG/DL (8.5-10.1); CARBON DIOXIDE 28 MMOL/L (21-32); CHLORIDE 102 MMOL/L (98-107); CREATININE SERUM 0.76 MG/DL (0.60-1.30); GFR ESTIMATED > 60; GLUCOSE 102 MG/DL (70-105); SODIUM 137 MMOL/L (135-145)
[2019-11-24 13:53] LABS: BASOPHILS # (AUTO) 0.1 10^3/uL (0.0-0.1); BASOPHILS % (AUTO) 1 % (0-10); EOSINOPHILS # (AUTO) 0.1 10^3/uL (0.0-0.3); EOSINOPHILS % (AUTO) 1 % (0-10); HEMATOCRIT 40 % (40-54); HEMOGLOBIN 13.7 G/DL (13.3-17.7); LYMPHOCYTES # (AUTO) 2.2 X 10^3 (1.0-4.0); LYMPHOCYTES % (AUTO) 29 % (12-44); MEAN CORPUSCULAR HEMOGLOBIN 33 PG (25-34); MEAN CORPUSCULAR HGB CONC 35 G/DL (32-36); MEAN CORPUSCULAR VOLUME 94 FL (80-99); MEAN PLATELET VOLUME 8.6 FL (7.4-10.4); MONOCYTES # (AUTO) 0.7 X 10^3 (0.0-1.0); MONOCYTES % (AUTO) 9 % (0-12); NEUTROPHILS # (AUTO) 4.6 X 10^3 (1.8-7.8); NEUTROPHILS % (AUTO) 61 % (42-75); PLATELET COUNT 345 10^3/uL (130-400); RED CELL DISTRIBUTION WIDTH 12.2 % (10.0-14.5); WHITE BLOOD COUNT 7.5 10^3/uL (4.3-11.0)
[2019-11-24 14:11] LABS: ALANINE AMINOTRANSFERASE 9 U/L (0-55); ALBUMIN 4.5 GM/DL (3.2-4.5); ALKALINE PHOSPHATASE 51 U/L (40-136); BILIRUBIN,TOTAL 0.7 MG/DL (0.1-1.0); BUN/CREATININE RATIO 13; CALCIUM 9.6 MG/DL (8.5-10.1); CARBON DIOXIDE 27 MMOL/L (21-32); CHLORIDE 100 MMOL/L (98-107); CREATININE SERUM 0.84 MG/DL (0.60-1.30); GFR ESTIMATED > 60; GLUCOSE 131 MG/DL (70-105); POTASSIUM 3.6 MMOL/L (3.6-5.0); SODIUM 138 MMOL/L (135-145); TOTAL PROTEIN 6.6 GM/DL (6.4-8.2)
--- NOTE | 2019-11-24 15:56 | Diagnostic Imaging Report ---
INDICATION: Small cell lung carcinoma. TIME OF EXAM: 3:11 p.m. COMPARISON: Correlation is made with prior chest from 10/25/2019. FINDINGS: Right chest wall port has tip overlying the SVC. Calcified lymph nodes in the subcarinal and right hilar region are unchanged. Lungs appear to be clear. No infiltrates are seen. There is no effusion or pneumothorax. IMPRESSION: Stable chest. No acute feature is detected. Dictated by: Dictated on workstation # [id number]
[2019-12-05 14:01] LABS: BASOPHILS % (AUTO) 1 % (0-10); EOSINOPHILS # (AUTO) 0.1 10^3/uL (0.0-0.3); EOSINOPHILS % (AUTO) 2 % (0-10); HEMATOCRIT 34 % (40-54); HEMOGLOBIN 11.9 G/DL (13.3-17.7); LYMPHOCYTES # (AUTO) 1.2 X 10^3 (1.0-4.0); LYMPHOCYTES % (AUTO) 19 % (12-44); MEAN CORPUSCULAR HEMOGLOBIN 33 PG (25-34); MEAN CORPUSCULAR HGB CONC 35 G/DL (32-36); MEAN CORPUSCULAR VOLUME 94 FL (80-99); MEAN PLATELET VOLUME 9.6 FL (7.4-10.4); MONOCYTES # (AUTO) 0.3 X 10^3 (0.0-1.0); MONOCYTES % (AUTO) 5 % (0-12); NEUTROPHILS # (AUTO) 4.5 X 10^3 (1.8-7.8); NEUTROPHILS % (AUTO) 73 % (42-75); PLATELET COUNT 137 10^3/uL (130-400); RED CELL DISTRIBUTION WIDTH 11.3 % (10.0-14.5); WHITE BLOOD COUNT 6.1 10^3/uL (4.3-11.0)
[2019-12-05 14:21] LABS: BUN/CREATININE RATIO 17; CARBON DIOXIDE 25 MMOL/L (21-32); CHLORIDE 100 MMOL/L (98-107); CREATININE SERUM 0.72 MG/DL (0.60-1.30); GFR ESTIMATED > 60; GLUCOSE 125 MG/DL (70-105); POTASSIUM 3.6 MMOL/L (3.6-5.0); SODIUM 136 MMOL/L (135-145)
[2019-12-19 09:35] LABS: BASOPHILS % (AUTO) 0 % (0-10); EOSINOPHILS % (AUTO) 0 % (0-10); HEMATOCRIT 37 % (40-54); HEMOGLOBIN 12.9 G/DL (13.3-17.7); LYMPHOCYTES # (AUTO) 1.6 X 10^3 (1.0-4.0); LYMPHOCYTES % (AUTO) 24 % (12-44); MEAN CORPUSCULAR HEMOGLOBIN 32 PG (25-34); MEAN CORPUSCULAR HGB CONC 35 G/DL (32-36); MEAN CORPUSCULAR VOLUME 92 FL (80-99); MEAN PLATELET VOLUME 8.5 FL (7.4-10.4); MONOCYTES # (AUTO) 0.6 X 10^3 (0.0-1.0); MONOCYTES % (AUTO) 10 % (0-12); NEUTROPHILS # (AUTO) 4.3 X 10^3 (1.8-7.8); NEUTROPHILS % (AUTO) 66 % (42-75); PLATELET COUNT 310 10^3/uL (130-400); RED CELL DISTRIBUTION WIDTH 12.4 % (10.0-14.5); WHITE BLOOD COUNT 6.5 10^3/uL (4.3-11.0)
[2019-12-19 10:08] LABS: BUN/CREATININE RATIO 9; CALCIUM 9.8 MG/DL (8.5-10.1); CARBON DIOXIDE 27 MMOL/L (21-32); CHLORIDE 102 MMOL/L (98-107); CREATININE SERUM 0.82 MG/DL (0.60-1.30); GFR ESTIMATED > 60; GLUCOSE 115 MG/DL (70-105); POTASSIUM 3.4 MMOL/L (3.6-5.0); SODIUM 138 MMOL/L (135-145)
[2019-12-26 13:25] LABS: BASOPHILS % (AUTO) 1 % (0-10); EOSINOPHILS % (AUTO) 0 % (0-10); HEMATOCRIT 36 % (40-54); HEMOGLOBIN 12.8 G/DL (13.3-17.7); LYMPHOCYTES # (AUTO) 1.1 X 10^3 (1.0-4.0); LYMPHOCYTES % (AUTO) 27 % (12-44); MEAN CORPUSCULAR HEMOGLOBIN 33 PG (25-34); MEAN CORPUSCULAR HGB CONC 36 G/DL (32-36); MEAN CORPUSCULAR VOLUME 93 FL (80-99); MEAN PLATELET VOLUME 8.8 FL (7.4-10.4); MONOCYTES # (AUTO) 0.3 X 10^3 (0.0-1.0); MONOCYTES % (AUTO) 8 % (0-12); NEUTROPHILS # (AUTO) 2.5 X 10^3 (1.8-7.8); NEUTROPHILS % (AUTO) 64 % (42-75); PLATELET COUNT 293 10^3/uL (130-400); RED CELL DISTRIBUTION WIDTH 12.4 % (10.0-14.5); WHITE BLOOD COUNT 3.9 10^3/uL (4.3-11.0)
[2019-12-26 13:43] LABS: ALANINE AMINOTRANSFERASE 7 U/L (0-55); ALBUMIN 4.1 GM/DL (3.2-4.5); ALKALINE PHOSPHATASE 53 U/L (40-136); BILIRUBIN,TOTAL 0.4 MG/DL (0.1-1.0); BUN/CREATININE RATIO 9; CALCIUM 9.5 MG/DL (8.5-10.1); CARBON DIOXIDE 28 MMOL/L (21-32); CHLORIDE 100 MMOL/L (98-107); CREATININE SERUM 0.78 MG/DL (0.60-1.30); GFR ESTIMATED > 60; GLUCOSE 180 MG/DL (70-105); SODIUM 138 MMOL/L (135-145)
[~2020-01-16] VITALS: Ht 175.3 cm; Wt 47.2 kg
[~2020-01-16 12:38] MED LIST changes: +ACHYD1T PO; +ATEZOLIZUMAB 1,200 MG in NS (IVPB) CANCER CENTER 250 ML IV SCH; +ETOPOSIDE 150 MG in NORMAL SALINE (CANCER CENTER) 500 ML IV SCH; +ETOPOSIDE 160 MG in NORMAL SALINE (CANCER CENTER) 500 ML IV SCH; +ETOPOSIDE 170 MG in NORMAL SALINE (CANCER CENTER) 500 ML IV SCH; +FOSAPREPITANT DIMEGLUMINE 150 MG in NS (IVPB) CANCER CENTER ONLY 150 ML IV SCH; -GADOBUTROL 7.5 MMOL/7.5 ML (GADAVIST) VIAL IV ONE; -HOLD METFORMIN - RECEIVED CONTRAST 20 ML VIAL IV SCH; -HYDR-3820 PO; -IOHEXOL 350 MG/ML 100 ML (OMNIPAQUE 350) VIAL IV ONE; -NS 100 ML (IVPB) BAG IV ONE; +NS IV 1000 ML (CANCER CTR) IV SCH; +NS IV 500 ML (CANCER CENTER) 500 ML ONE; -OMEP-280; +OMEP20CA18; +ONDANSETRON MDV (CANCER CENTER 16 MG, DEXAMETHASONE INJECTION 10 MG in NS (IVPB) CANCER... IV SCH; +PALONOSETRON HCL 0.25 MG, DEXAMETHASONE INJECTION 10 MG in NS (IVPB) CANCER CENTER 50 ML IV SCH; +PEGFILGRASTIM 6 MG/0.6ML NEULASTA SC SCH; +RT-ALBUTEROL SULF 2.5 MG/3 ML PRE-MIX VIAL ONE; +[UNRECOGNIZED DRUG - REMARK] SC SCH; +morphine INJ 4 MG/ML 1 ML (CANCER CTR) IV PRN
[2020-01-16 13:17] LABS: BASOPHILS % (AUTO) 1 % (0-10); EOSINOPHILS # (AUTO) 0.1 10^3/uL (0.0-0.3); EOSINOPHILS % (AUTO) 2 % (0-10); HEMATOCRIT 35 % (40-54); HEMOGLOBIN 12.7 G/DL (13.3-17.7); LYMPHOCYTES # (AUTO) 0.9 X 10^3 (1.0-4.0); LYMPHOCYTES % (AUTO) 22 % (12-44); MEAN CORPUSCULAR HEMOGLOBIN 33 PG (25-34); MEAN CORPUSCULAR HGB CONC 37 G/DL (32-36); MEAN CORPUSCULAR VOLUME 90 FL (80-99); MEAN PLATELET VOLUME 9.1 FL (7.4-10.4); MONOCYTES # (AUTO) 0.4 X 10^3 (0.0-1.0); MONOCYTES % (AUTO) 11 % (0-12); NEUTROPHILS # (AUTO) 2.5 X 10^3 (1.8-7.8); NEUTROPHILS % (AUTO) 65 % (42-75); PLATELET COUNT 208 10^3/uL (130-400); RED CELL DISTRIBUTION WIDTH 12.1 % (10.0-14.5); WHITE BLOOD COUNT 3.9 10^3/uL (4.3-11.0)
[2020-01-16 13:40] LABS: ALANINE AMINOTRANSFERASE 8 U/L (0-55); ALKALINE PHOSPHATASE 40 U/L (40-136); BILIRUBIN,TOTAL 0.4 MG/DL (0.1-1.0); BUN/CREATININE RATIO 14; CALCIUM 9.5 MG/DL (8.5-10.1); CARBON DIOXIDE 29 MMOL/L (21-32); CHLORIDE 102 MMOL/L (98-107); GFR ESTIMATED > 60; GLUCOSE 104 MG/DL (70-105); POTASSIUM 3.9 MMOL/L (3.6-5.0); SODIUM 138 MMOL/L (135-145); TOTAL PROTEIN 5.8 GM/DL (6.4-8.2)
[2020-01-16] MEDS ORDERED: morphine INJ 4 MG/ML 1 ML (CANCER CTR) IV ONE (14:06)
[2020-01-16] MEDS ORDERED: NS IV 500 ML (CANCER CENTER) 500 ML IV SCH (14:45)
== END 2020-01-23 | disposition home or self-care (01) ==
LOC: ONC 12:38
PROVIDERS: ATTEND Internal Medicine Hematology & Oncology
DX: Z51.11 Encounter for antineoplastic chemotherapy (principal); C79.51 Secondary malignant neoplasm of bone; C34.32 Malignant neoplasm of lower lobe, left bronchus or lung; I10 Essential (primary) hypertension; Z79.891 Long term (current) use of opiate analgesic
CPT/HCPCS: 36591; 71046; 77290; 77295; 77300; 77334; 77336; 77402; 77417; 80048; 80053; 83615; 83735; 84443; 85025; 94640; 96367; 96372; 96374; 96375; 96376; 96413; 96417; 99204; 99213; J2505

== ENCOUNTER → 2020-02-06 | Outpatient (CLI) | payer OTHER ==
[~2020-02-06] MED LIST changes: -ATEZOLIZUMAB 1,200 MG in NS (IVPB) CANCER CENTER 250 ML IV SCH; -ETOPOSIDE 150 MG in NORMAL SALINE (CANCER CENTER) 500 ML IV SCH; -ETOPOSIDE 160 MG in NORMAL SALINE (CANCER CENTER) 500 ML IV SCH; -ETOPOSIDE 170 MG in NORMAL SALINE (CANCER CENTER) 500 ML IV SCH; -FOSAPREPITANT DIMEGLUMINE 150 MG in NS (IVPB) CANCER CENTER ONLY 150 ML IV SCH; -NS IV 1000 ML (CANCER CTR) IV SCH; -NS IV 500 ML (CANCER CENTER) 500 ML ONE; -ONDANSETRON MDV (CANCER CENTER 16 MG, DEXAMETHASONE INJECTION 10 MG in NS (IVPB) CANCER... IV SCH; -PALONOSETRON HCL 0.25 MG, DEXAMETHASONE INJECTION 10 MG in NS (IVPB) CANCER CENTER 50 ML IV SCH; -PEGFILGRASTIM 6 MG/0.6ML NEULASTA SC SCH; -RT-ALBUTEROL SULF 2.5 MG/3 ML PRE-MIX VIAL ONE; -[UNRECOGNIZED DRUG - REMARK] SC SCH; -morphine INJ 4 MG/ML 1 ML (CANCER CTR) IV PRN
--- NOTE | 2020-02-06 15:18 | Diagnostic Imaging Report ---
INDICATION: Shortness of breath. Patient has known small cell lung carcinoma. Correlation is made with recent chest x-ray from 11/24/[address] chest from 12/22/2019. FINDINGS: Right chest wall port remains in place. There are calcified lymph nodes in the right hilum. There is a band of density on the lateral view arising from the hilum, not present on prior chest radiographs. This may represent a new area of atelectasis, likely on the left side. Otherwise, the lungs appear to be clear. There is no effusion or pneumothorax. IMPRESSION: There appears to be some increasing atelectasis or infiltrate only seen on the lateral view and overlying the posterior aspect of the heart. This may represent a band of linear atelectasis in the lingula versus infiltrate. Continued follow-up is recommended. Consideration could be given to repeating chest CT for better evaluation. Dictated by: Dictated on workstation # [id number]
== END ==
LOC: RAD 14:23
PROVIDERS: ATTEND Nurse Practitioner Adult Health
DX: R06.02 Shortness of breath (principal); C34.32 Malignant neoplasm of lower lobe, left bronchus or lung; C79.51 Secondary malignant neoplasm of bone; R52 Pain, unspecified
CPT/HCPCS: 71046

== ENCOUNTER → 2020-02-27 | Outpatient (CLI) | payer MEDICAID ==
--- NOTE | 2020-02-27 16:25 | Diagnostic Imaging Report ---
EXAMINATION: Chest, 2 views. HISTORY: Shortness of breath. History of small cell lung cancer. Metastatic disease to the bone. COMPARISON: Chest radiograph on 02/06/2020. FINDINGS: There is stable configuration of a right port with the tip overlying the mid SVC. The lung volumes are normal. Redemonstration of the consolidative opacities in the left mid and lower lung and prominence of the left hilum, representing the patient's history of lung cancer. The right hemithorax appears well aerated. No large pleural effusion or pneumothorax. The cardiac silhouette is unremarkable. No acute osseous abnormalities are seen. IMPRESSION: Overall stable appearance of the focal consolidations in the left mid and lower lung and prominence of the left hilum, representing the patient's history of known lung cancer. No significant change compared to the prior exam. Dictated by: Dictated on workstation # [id number]
== END ==
LOC: RAD 15:18
PROVIDERS: ATTEND Nurse Practitioner Adult Health
DX: R06.02 Shortness of breath (principal); C34.32 Malignant neoplasm of lower lobe, left bronchus or lung; C79.51 Secondary malignant neoplasm of bone
CPT/HCPCS: 71046

== ENCOUNTER 2020-03-19 14:33 | Outpatient (RCR) | payer MEDICAID, OTHER ==
[2020-02-06 13:58] LABS: BASOPHILS % (AUTO) 0 % (0-10); EOSINOPHILS # (AUTO) 0.1 10^3/uL (0.0-0.3); EOSINOPHILS % (AUTO) 1 % (0-10); HEMATOCRIT 35 % (40-54); HEMOGLOBIN 12.2 G/DL (13.3-17.7); LYMPHOCYTES # (AUTO) 0.7 X 10^3 (1.0-4.0); LYMPHOCYTES % (AUTO) 16 % (12-44); MEAN CORPUSCULAR HEMOGLOBIN 32 PG (25-34); MEAN CORPUSCULAR HGB CONC 35 G/DL (32-36); MEAN CORPUSCULAR VOLUME 90 FL (80-99); MEAN PLATELET VOLUME 8.8 FL (7.4-10.4); MONOCYTES # (AUTO) 0.4 X 10^3 (0.0-1.0); MONOCYTES % (AUTO) 8 % (0-12); NEUTROPHILS # (AUTO) 3.4 X 10^3 (1.8-7.8); NEUTROPHILS % (AUTO) 74 % (42-75); PLATELET COUNT 266 10^3/uL (130-400); RED CELL DISTRIBUTION WIDTH 11.8 % (10.0-14.5); WHITE BLOOD COUNT 4.5 10^3/uL (4.3-11.0)
[2020-02-06 14:07] LABS: ALANINE AMINOTRANSFERASE 13 U/L (0-55); ALKALINE PHOSPHATASE 67 U/L (40-136); BILIRUBIN,TOTAL 0.5 MG/DL (0.1-1.0); BUN/CREATININE RATIO 13; CALCIUM 9.5 MG/DL (8.5-10.1); CARBON DIOXIDE 27 MMOL/L (21-32); CHLORIDE 101 MMOL/L (98-107); GFR ESTIMATED > 60; GLUCOSE 99 MG/DL (70-105); POTASSIUM 3.6 MMOL/L (3.6-5.0); SODIUM 138 MMOL/L (135-145); TOTAL PROTEIN 6.1 GM/DL (6.4-8.2)
[2020-02-27 13:52] LABS: BASOPHILS % (AUTO) 0 % (0-10); EOSINOPHILS % (AUTO) 1 % (0-10); HEMATOCRIT 33 % (40-54); HEMOGLOBIN 11.6 G/DL (13.3-17.7); LYMPHOCYTES # (AUTO) 0.7 X 10^3 (1.0-4.0); LYMPHOCYTES % (AUTO) 13 % (12-44); MEAN CORPUSCULAR HEMOGLOBIN 32 PG (25-34); MEAN CORPUSCULAR HGB CONC 35 G/DL (32-36); MEAN CORPUSCULAR VOLUME 91 FL (80-99); MEAN PLATELET VOLUME 8.2 FL (7.4-10.4); MONOCYTES # (AUTO) 0.6 X 10^3 (0.0-1.0); MONOCYTES % (AUTO) 9 % (0-12); NEUTROPHILS # (AUTO) 4.6 X 10^3 (1.8-7.8); NEUTROPHILS % (AUTO) 77 % (42-75); PLATELET COUNT 298 10^3/uL (130-400); RED CELL DISTRIBUTION WIDTH 12.3 % (10.0-14.5); WHITE BLOOD COUNT 5.9 10^3/uL (4.3-11.0)
[2020-02-27 14:13] LABS: BUN/CREATININE RATIO 13; CALCIUM 9.5 MG/DL (8.5-10.1); CARBON DIOXIDE 30 MMOL/L (21-32); CHLORIDE 99 MMOL/L (98-107); CREATININE SERUM 0.79 MG/DL (0.60-1.30); GFR ESTIMATED > 60; GLUCOSE 109 MG/DL (70-105); POTASSIUM 3.5 MMOL/L (3.6-5.0); SODIUM 137 MMOL/L (135-145)
[2020-02-27 15:19] LABS: ALANINE AMINOTRANSFERASE 13 U/L (0-55); ALBUMIN 3.9 GM/DL (3.2-4.5); ALKALINE PHOSPHATASE 79 U/L (40-136); BILIRUBIN,TOTAL 0.3 MG/DL (0.1-1.0); TOTAL PROTEIN 6.1 GM/DL (6.4-8.2)
[2020-02-27 16:13] LABS: BILIRUBIN,URINE NEGATIVE (NEGATIVE); CLARITY,URINE CLEAR; COLOR,URINE YELLOW; GLUCOSE, URINE (UA) NEGATIVE (NEGATIVE); KETONES,URINE NEGATIVE (NEGATIVE); LEUKOCYTE ESTERASE ,URINE NEGATIVE (NEGATIVE); NITRITE,URINE NEGATIVE (NEGATIVE); PROTEIN,URINE TRACE (NEGATIVE)
[2020-02-27 16:28] LABS: AMORPHOUS SEDIMENT,UR LARGE AMOR URATES /LPF; BACTERIA,URINE NEGATIVE /HPF; HYALINE CASTS, URINE RARE /LPF
[~2020-03-19 14:33] MED LIST changes: +ATEZOLIZUMAB 1,200 MG in NS (IVPB) CANCER CENTER 250 ML IV SCH; +NS IV 500 ML (CANCER CENTER) 500 ML IV SCH; +fentaNYL INJ 100 MCG/2 ML (CANCER CENTER) INJ ONE; +fentaNYL INJ 100 MCG/2 ML (CANCER CENTER) IV PRN; +morphine INJ 4 MG/ML 1 ML (CANCER CTR) IV ONE; +morphine INJ 4 MG/ML 1 ML (CANCER CTR) ONE
[2020-03-19 15:19] LABS: BASOPHILS % (AUTO) 1 % (0-10); EOSINOPHILS % (AUTO) 1 % (0-10); HEMATOCRIT 34 % (40-54); HEMOGLOBIN 11.6 G/DL (13.3-17.7); LYMPHOCYTES # (AUTO) 1.2 X 10^3 (1.0-4.0); LYMPHOCYTES % (AUTO) 20 % (12-44); MEAN CORPUSCULAR HEMOGLOBIN 31 PG (25-34); MEAN CORPUSCULAR HGB CONC 34 G/DL (32-36); MEAN CORPUSCULAR VOLUME 93 FL (80-99); MEAN PLATELET VOLUME 8.4 FL (7.4-10.4); MONOCYTES # (AUTO) 0.4 X 10^3 (0.0-1.0); MONOCYTES % (AUTO) 7 % (0-12); NEUTROPHILS # (AUTO) 4.3 X 10^3 (1.8-7.8); NEUTROPHILS % (AUTO) 73 % (42-75); PLATELET COUNT 347 10^3/uL (130-400); RED CELL DISTRIBUTION WIDTH 12.3 % (10.0-14.5); WHITE BLOOD COUNT 5.9 10^3/uL (4.3-11.0)
[2020-03-19 15:41] LABS: ALANINE AMINOTRANSFERASE 30 U/L (0-55); ALKALINE PHOSPHATASE 135 U/L (40-136); BILIRUBIN,TOTAL 0.5 MG/DL (0.1-1.0); BUN/CREATININE RATIO 16; CALCIUM 10.9 MG/DL (8.5-10.1); CARBON DIOXIDE 28 MMOL/L (21-32); CHLORIDE 99 MMOL/L (98-107); CREATININE SERUM 0.85 MG/DL (0.60-1.30); GFR ESTIMATED > 60; GLUCOSE 126 MG/DL (70-105); POTASSIUM 4.4 MMOL/L (3.6-5.0); SODIUM 137 MMOL/L (135-145); TOTAL PROTEIN 6.4 GM/DL (6.4-8.2)
== END 2020-05-06 | disposition home or self-care (01) ==
LOC: ONC 14:33
PROVIDERS: ATTEND Internal Medicine Hematology & Oncology
DX: Z51.11 Encounter for antineoplastic chemotherapy (principal); C79.51 Secondary malignant neoplasm of bone; C34.32 Malignant neoplasm of lower lobe, left bronchus or lung; I10 Essential (primary) hypertension; Z79.891 Long term (current) use of opiate analgesic
CPT/HCPCS: 80053; 83615; 84443; 85025; 96375; 96413; G0463; 36591; 81000

== ENCOUNTER → 2020-03-22 | Outpatient (CLI) | payer MEDICAID ==
[~2020-03-22] MED LIST changes: -ATEZOLIZUMAB 1,200 MG in NS (IVPB) CANCER CENTER 250 ML IV SCH; -NS IV 500 ML (CANCER CENTER) 500 ML IV SCH; -fentaNYL INJ 100 MCG/2 ML (CANCER CENTER) INJ ONE; -fentaNYL INJ 100 MCG/2 ML (CANCER CENTER) IV PRN; -morphine INJ 4 MG/ML 1 ML (CANCER CTR) IV ONE; -morphine INJ 4 MG/ML 1 ML (CANCER CTR) ONE
--- NOTE | 2020-03-22 16:37 | Diagnostic Imaging Report ---
INDICATION: Right leg pain. Right leg venous Doppler study was performed in the routine fashion with color flow Doppler and waveform analysis. FINDINGS: The right common femoral vein, superficial femoral vein, popliteal vein and visualized portion of the tibial veins show normal compressibility and venous flow patterns. There is normal augmentation. IMPRESSION: No evidence of deep vein thrombosis of the major veins of the right leg. Dictated by: Dictated on workstation # [id number]
== END ==
LOC: RAD 15:57
PROVIDERS: ATTEND Nurse Practitioner Adult Health
DX: M79.604 Pain in right leg (principal)